=== PATIENT | female | born 1945 | race Caucasian/White ===

== ENCOUNTER → 2020-05-09 14:40 | Outpatient (BNVA) | payer MEDICARE, MEDICAID, SELFPAY | PROVIDERS: PCP Family Medicine; Visit Provider Urology | DX: N39.0 Urinary tract infection, site not specified (principal) | CPT/HCPCS: 99213 ==

== ENCOUNTER 2020-08-07 14:39 | Outpatient (REF) | payer MEDICARE, MEDICAID, SELFPAY ==
[2020-08-07 15:40] LABS: Glucose Urine UA NEG (NEG); Leukocyte Esterase Urine 2+ (NEG); Nitrite Urine POS (NEG); PH 5.5 (5.0-8.0); Specific Gravity - Urine 1.025 (1.005-1.025); Urine Blood 2+ (NEG); Urine Ketones NEG (NEG); Urine Protein 2+ MG/DL (NEG-TRACE)
[2020-08-07 15:46] LABS: Appearance Urine HAZY; Color Urine YELLOW
[2020-08-07 15:55] LABS: Bacteria Urine 3+ /LPF; RBC Urine 30-49 /HPF (0)
== END 2020-08-07 14:40 | disposition home or self-care (01) ==
LOC: HO.LAB 14:39
PROVIDERS: Visit Provider Urology
DX: N39.0 Urinary tract infection, site not specified (principal)
CPT/HCPCS: 81001; 87086

== ENCOUNTER 2020-11-30 08:25 | Outpatient (REF) | payer MEDICARE, MEDICAID, SELFPAY | END 2020-11-30 08:26 | disposition home or self-care (01) | LOC: HO.LAB 08:25 | PROVIDERS: PCP Family Medicine; Referring Provider Family Medicine; Visit Provider Nurse Practitioner | DX: R19.7 Diarrhea, unspecified (principal); K21.9 Gastro-esophageal reflux disease without esophagitis; K59.00 Constipation, unspecified; L85.3 Xerosis cutis | CPT/HCPCS: 36415; 80053; 85025; 99212 ==

== ENCOUNTER → 2021-01-18 08:33 | Outpatient (BNVA) | payer MEDICARE, MEDICAID, SELFPAY | PROVIDERS: PCP Family Medicine; Visit Provider Nurse Practitioner | DX: Z13.89 Encounter for screening for other disorder (principal) | CPT/HCPCS: Q3014 ==

== ENCOUNTER 2021-07-02 11:35 | Outpatient (REF) | payer MEDICARE, MEDICAID, SELFPAY ==
[2021-07-02 12:59] LABS: Appearance Urine HAZY; Color Urine YELLOW; Glucose Urine UA NEG (NEG); Leukocyte Esterase Urine 2+ (NEG); Nitrite Urine POS (NEG); Specific Gravity - Urine <= 1.005 (1.005-1.025); Urine Blood 2+ (NEG); Urine Ketones NEG (NEG); Urine Protein TRACE MG/DL (NEG-TRACE)
[2021-07-02 13:12] LABS: Squamous Epithelial Cell Urine TRACE /LPF
[2021-07-02 13:13] LABS: WBC Urine 50-75 /HPF (0-4)
[2021-07-02 13:14] LABS: Bacteria Urine 2+ /LPF; RBC Urine 0-2 /HPF (0)
== END 2021-07-02 11:36 | disposition home or self-care (01) ==
LOC: HO.LAB 11:35
DX: N39.0 Urinary tract infection, site not specified (principal)
CPT/HCPCS: 81001; 87086; 87088; 87186

== ENCOUNTER 2021-09-27 09:14 | Emergency (ER) | payer MEDICARE, MEDICAID, SELFPAY ==
--- NOTE | ~2021-09-27 | XR_ITS ---
EXAMINATION: XR RIBS, RIGHT CLINICAL INFORMATION: Trauma. COMPARISON: None TECHNIQUE: 3 views of the right ribs were obtained. Chest one view. FINDINGS: Chest: Lungs are clear. No consolidation, pneumothorax, or pleural effusion. The cardiomediastinal silhouette and pulmonary vasculature are normal. Right RIBS: There is right anterior seventh displaced and a nondisplaced right anterior ninth rib fractures. XR/XR ribs RT min 3V w CXR1V IMPRESSION: Unremarkable chest exam. Right anterior seventh and ninth rib fractures
[2021-09-27 09:17] VITALS: BP 195/97; PULSE 100; RESP 18; TEMP 37.1; O2SAT 97; BMI 29.7
--- NOTE | 2021-09-27 09:26 | ED.GENADULT ---
HPI - General Adult General Chief complaint: Fall Stated complaint: abd pain Time Seen by Provider: 09/27/21 09:26 Source: patient Limitations: no limitations History of Present Illness HPI narrative: Patient presents ER complaining of right lateral rib pain. Patient states 2-3 nights ago she fell abdomen slipping on water in her house. Patient states the pain is increasing increases with any twisting motion or palpation on the right side. Patient denies any loss of consciousness no headache. Patient denies nausea vomiting. Patient has a history of colon cancer, constipation, reflux disease and recurrent UTIs. Patient denies any chest pain or shortness of breath at this time patient denies any fever chills. Pain is 7 of 10. No other complaints at this time Related Data Home Medications Medication Instructions Recorded Confirmed alprazolam 0.25 mg tablet 0.25 mg PO DAILY PRN 11/30/20 01/18/21 amlodipine 10 mg tablet 10 mg PO DAILY 11/30/20 01/18/21 cholecalciferol (vitamin D3) 50 50 mcg PO DAILY 11/30/20 01/18/21 mcg (2,000 unit) capsule escitalopram oxalate 5 mg tablet 5 mg PO DAILY 11/30/20 01/18/21 hydrochlorothiazide 25 mg tablet 25 mg PO DAILY 11/30/20 01/18/21 levothyroxine 50 mcg tablet 50 mcg PO QAM 11/30/20 01/18/21 lisinopril 5 mg tablet 5 mg PO DAILY 11/30/20 01/18/21 mometasone 0.1 % topical ointment TOPICAL 11/30/20 01/18/21 potassium chloride 20 mEq 20 meq PO DAILY 11/30/20 01/18/21 tablet,extended release riboflavin (vitamin B2) 100 mg 100 mg PO DAILY 11/30/20 01/18/21 tablet sennosides 15 mg tablet (Ex-Lax 15 mg PO .QOD tab 01/18/21 01/18/21 (sennosides)) Previous Rx's Medication Instructions Recorded nitrofurantoin 100 mg PO DAILY 90 Days #90 cap 07/04/21 monohydrate/macrocrystals 100 mg capsule (Macrobid) levofloxacin 500 mg tablet 500 mg PO DAILY 5 Days #5 tab 07/05/21 ibuprofen 600 mg tablet 600 mg PO TID PRN #20 tab 09/27/21 tramadol 50 mg tablet 50 mg PO BID PRN #14 tab 09/27/21 Allergies Allergy/AdvReac Type Severity Reaction Status Date / Time Sulfa (Sulfonamide Allergy Intermediate RASH Verified 09/27/21 09:17 Antibiotics) [SULFA (SULFONAMIDE ANTIBIOTICS)] lisinopril Allergy Unknown unknown Verified 09/27/21 09:17 nitrofurantoin Allergy Unknown LOT OF Verified 09/27/21 09:17 [From MACRODANTIN] PROBLEMS WITH IT prednisone [PREDNISONE] Allergy Unknown VERY Verified 09/27/21 09:17 ANXIOUS, pt cannot remember ENVIRONMENTAL Allergy Intermediate HAYFEVER Uncoded 04/13/20 18:54 Review of Systems Constitutional: Constitutional: Reports body ache(s), Denies chills, Denies fever(s) and Denies headache(s) ENT: Denies headache(s) Cardiovascular: Cardiovascular: Denies chest pain and Denies dyspnea Comments: Right lateral rib pain Respiratory: Respiratory: Denies dyspnea Gastrointestinal: Gastrointestinal: Denies abdominal pain, Denies diarrhea, Denies nausea and Denies vomiting Musculoskeletal: Comments: Right lateral rib pain Neurologic: Denies Abnormal speech present and Denies headache(s) FORMERLY [facility], 1928–1983 Past Medical History Attestation statement: The following information was validated with the patient. Medical History Hx of cyst of breast Hx of radiation therapy Surgical History History of esophagogastroduodenoscopy (EGD) Hx of cataract surgery Hx of colonoscopy Hx of hysterectomy Hx of tonsillectomy Social History Social History Household Members: Children Alcohol intake: current Alcohol intake frequency: does not drink Patient Tobacco Use Status: Never used Tobacco Use of substances other than those prescribed or required for medical reasons: No Advance Directives: Yes Advance Directives Information Provided: Yes Advance Directives on File: No Current occupational status: retired Physical Exam ED Vital Signs: Vital Signs - 24 hr 09/27/21 09:17 09/27/21 10:33 Temperature 98.7 F 97.6 F Pulse Rate 100 94 Respiratory Rate 18 14 Blood Pressure 195/97 H 173/99 H Pulse Oximetry 97 99 BMI result Body Mass Index 29.7 vital signs have been reviewed as normal and appeared to be correct. Blood pressure normal. Heart rate normal. Respiration rate normal. Temperature normal. Oxygen saturation normal. Const General: cooperative, no acute distress, well developed, alert, awake, Physically active and well groomed; No comfortable HENMT Head: Yes normocephalic and Yes atraumatic General nose exam: Normal external nose present Face and sinus: Yes normal facial exam Mouth: Normal oral and palatal mucosa present Eyes Pupils: Equal, round and reactive pupils present EOM: EOMs intact bilaterally Neck Neck: Yes full ROM, Yes trachea midline and Yes supple Chest Chest palpation & inspection: normal inspection of the chest, no crepitus and other (No ecchymosis noted right lateral ribs no crepitus) Resp Effort & Inspection: no cough, not labored, no retractions and no tracheal deviation Auscultation: clear to auscultation bilaterally Cardio Rate: regular rate Rhythm: regular rhythm GI Inspection: Yes normal to inspection Palpation (GI): Soft to palpation and nontender Back/Spine/Pelvis Other: Back full range of motion Skin Other: Skin is warm and dry no ecchymosis noted no rashes noted Neuro Other: Patient is alert oriented x3 speech is intact no focal deficit bilateral spot man is equal. Ambulatory Cranial nerves: Yes Equal, round and reactive pupils present Speech: No Abnormal speech present Gait exam (Neuro): Normal gait present Extrem General: Yes full ROM Course Course Course Narrative: Right-sided rib fracture Rib contusion Herpes zoster to Chest wall contusion Right-sided rib x-rays was chest x-ray is pending 11:13 X-ray reviewed with patient patient is a 7th and 9th rib fracture incentive spirometry training will be performed by RN Patient states she lives with her son and feel safe going home [employer] reviewed patient's on alprazolam will plan to place patient on NSAIDs and a short course of tramadol for pain. Patient also advised follow-up with PCP within 2 days. Medical Decision Making Imaging Data rib : My impression: [address] [facility] [place] [place] [address] XRay Report Signed Patient: Leonarda Raphael MR#: [id number] : 1945 Acct:[id number] Age/Sex: 75 / F ADM Date: 09/27/21 Loc: HO.ED Attending Dr: Ordering Physician: Man Thompson Date of Service: 09/27/21 Procedure(s): XR ribs RT min 3V w CXR1V Accession Number(s): [id number] cc: Man Thompson ~ EXAMINATION: XR RIBS, RIGHT CLINICAL INFORMATION: Trauma. COMPARISON: None TECHNIQUE: 3 views of the right ribs were obtained. Chest one view. FINDINGS: Chest: Lungs are clear. No consolidation, pneumothorax, or pleural effusion. The cardiomediastinal silhouette and pulmonary vasculature are normal. Right RIBS: There is right anterior seventh displaced and a nondisplaced right anterior ninth rib fractures. XR/XR ribs RT min 3V w CXR1V IMPRESSION: Unremarkable chest exam. ? Right anterior seventh and ninth rib fractures ? Dictated By: Sergey Falcon MD Signed By: <Electronically signed by Sergey Falcon MD in OV> 09/27/21 1050 DD/ 1000 TD/TT:? Welcome Wagon Hostess: [facility] Discharge Plan Discharge Clinical Impression: Fracture of rib Patient Disposition: Home, Self-Care Instructions: Rib Fracture (ED) Additional Instructions: Your x-ray shows the 7th and 9th right rib fracture Breathing exercises as recommended with incentive spirometer to prevent pneumonia Return if symptoms worsen Call PCP for follow-up Prescriptions: New ibuprofen 600 mg tablet 600 mg PO TID PRN (Reason: pain) Qty: 20 0RF tramadol 50 mg tablet 50 mg PO BID PRN (Reason: severe pain (scale score 7-10)) Qty: 14 0RF No Action nitrofurantoin monohyd/m-cryst [Macrobid] 100 mg capsule 100 mg PO DAILY 90 Days Qty: 90 0RF Rx Instructions: must administer with a meal/food levofloxacin 500 mg tablet 500 mg PO DAILY 5 Days Qty: 5 0RF mometasone 0.1 % ointment topical 0RF amlodipine 10 mg tablet 10 mg PO DAILY 0RF escitalopram oxalate 5 mg tablet 5 mg PO DAILY 0RF levothyroxine 50 mcg tablet 50 mcg PO QAM 0RF potassium chloride 20 mEq tablet extended release 20 meq PO DAILY 0RF hydrochlorothiazide 25 mg tablet 25 mg PO DAILY 0RF cholecalciferol (vitamin D3) 50 mcg (2,000 unit) capsule 50 mcg PO DAILY 0RF lisinopril 5 mg tablet 5 mg PO DAILY 0RF alprazolam 0.25 mg tablet 0.25 mg PO DAILY PRN (Reason: anxiety) 0RF riboflavin (vitamin B2) 100 mg tablet 100 mg PO DAILY 0RF Ex-Lax (sennosides) 15 mg tablet 15 mg PO .QOD 0RF Referrals: Lawanda Huynh MD [Primary Care Provider] - 2 days (Right-sided rib fracture)
[2021-09-27 10:33] VITALS: BP 173/99; PULSE 94; RESP 14; TEMP 36.4; O2SAT 99
--- NOTE | 2021-09-27 11:29 | PC.NURSE ---
Education on incentive spirometer. reviewed discharge instructions. Pt verbalized understanding.
== END 2021-09-27 11:34 | disposition home or self-care (01) ==
PROVIDERS: Emergency Provider Emergency Medicine; PCP Family Medicine
DX: S22.41XA Multiple fractures of ribs, right side, initial encounter for closed fracture (principal); W01.10XA Fall on same level from slipping, tripping and stumbling with subsequent striking against unspecified object, initial encounter; Y93.89 Activity, other specified; Y92.010 Kitchen of single-family (private) house as the place of occurrence of the external cause; Y99.9 Unspecified external cause status
CPT/HCPCS: 71101; 99283; 99284

== ENCOUNTER 2022-01-04 14:27 | Emergency (ER) | payer MEDICARE, MEDICAID, SELFPAY ==
[2022-01-04 14:34] VITALS: BP 154/85; PULSE 105; RESP 18; TEMP 36.8; O2SAT 96; BMI 29.5
[2022-01-04 14:49] LABS: Appearance Urine CLOUDY; Color Urine YELLOW; Glucose Urine UA NEG (NEG); Leukocyte Esterase Urine 3+ (NEG); Nitrite Urine NEG (NEG); PH 6.5 (5.0-8.0); UACC Culture Trigger YES; Urine Blood 2+ (NEG); Urine Ketones NEG (NEG); Urine Protein 1+ MG/DL (NEG-TRACE)
[2022-01-04 14:55] LABS: Bacteria Urine 4+ /LPF; WBC Urine TNTC /HPF (0-4)
[2022-01-04 14:56] LABS: RBC Urine 0 /HPF (0)
--- NOTE | 2022-01-04 16:43 | ED.FEMALEGU ---
HPI - Female Genitourinary General Chief complaint: Urogenital-Female Stated complaint: quest uti Time Seen by Provider: 01/04/22 16:38 Source: patient Mode of arrival: ambulatory Limitations: no limitations History of Present Illness HPI Narrative: 76-year-old female presents with urinary symptoms that started about 2 days ago. Has a significant history of recurrent UTIs. Denies fevers, chills, flank pain, and other concerning symptoms. MD elicited complaint: UTI Pertinent past history: recurrent UTIs Onset (ago): day(s) (2) Location of symptoms: urethra Severity: moderate Severity scale (1-10): 3 Quality of pain: burning Consistency: intermittent Vaginal discharge: none Vaginal bleeding: none Urinary symptoms: Dysuria, Urgency and Frequency Exacerbating factors: urination Relieving factors: none Associated symptoms: denies other symptoms Treatment prior to arrival: none Sexual activity: No Patient : No Related Data Home Medications Medication Instructions Recorded Confirmed alprazolam 0.25 mg tablet 0.25 mg PO DAILY PRN anxiety 11/30/20 01/18/21 amlodipine 10 mg tablet 10 mg PO DAILY 11/30/20 01/18/21 cholecalciferol (vitamin D3) 50 50 mcg PO DAILY 11/30/20 01/18/21 mcg (2,000 unit) capsule escitalopram oxalate 5 mg tablet 5 mg PO DAILY 11/30/20 01/18/21 hydrochlorothiazide 25 mg tablet 25 mg PO DAILY 11/30/20 01/18/21 levothyroxine 50 mcg tablet 50 mcg PO QAM 11/30/20 01/18/21 lisinopril 5 mg tablet 5 mg PO DAILY 11/30/20 01/18/21 mometasone 0.1 % topical ointment topical 11/30/20 01/18/21 potassium chloride 20 mEq 20 meq PO DAILY 11/30/20 01/18/21 tablet,extended release riboflavin (vitamin B2) 100 mg 100 mg PO DAILY 11/30/20 01/18/21 tablet sennosides 15 mg tablet (Ex-Lax 15 mg PO .QOD 01/18/21 01/18/21 (sennosides)) Previous Rx's Medication Instructions Recorded nitrofurantoin 100 mg PO DAILY UTI 90 days #90 07/04/21 monohydrate/macrocrystals 100 mg caps capsule (Macrobid) levofloxacin 500 mg tablet 500 mg PO DAILY 5 days #5 tabs 07/05/21 ibuprofen 600 mg tablet 600 mg PO TID PRN pain #20 tabs 09/27/21 tramadol 50 mg tablet 50 mg PO BID PRN severe pain 09/27/21 (scale score 7-10) #14 tabs cephalexin 500 mg capsule 500 mg PO Q12H 7 days #14 caps 01/04/22 Allergies Allergy/AdvReac Type Severity Reaction Status Date / Time Sulfa (Sulfonamide Allergy Intermediate RASH Verified 01/04/22 14:33 Antibiotics) [SULFA (SULFONAMIDE ANTIBIOTICS)] lisinopril Allergy Unknown unknown Verified 01/04/22 14:33 nitrofurantoin Allergy Unknown LOT OF Verified 01/04/22 14:33 [From MACRODANTIN] PROBLEMS WITH IT prednisone [PREDNISONE] Allergy Unknown VERY Verified 01/04/22 14:33 ANXIOUS, pt cannot remember ENVIRONMENTAL Allergy Intermediate HAYFEVER Uncoded 01/04/22 14:33 Review of Systems Review of Systems: Constitutional: No Fever, No Chills ENT/Mouth: No Ear Pain, No Hoarseness, No sore throat Eyes: No Eye Pain, No Swelling, No Redness, No Foreign Body Cardiovascular: No Chest Pain, No SOB Respiratory: No Cough, No Dyspnea Gastrointestinal: No Nausea, No Vomiting, No Diarrhea, No abdominal Pain Genitourinary: Positive Dysuria, No Hematuria Musculoskeletal: No joint pain, No Myalgias, No Joint Swelling Skin: No Skin lacerations, No rash Neuro: No Weakness, No Numbness, No Paresthesias, No Loss of Consciousness, No Dizziness, No Headache Psych: No Anxiety/Panic, No Depression Heme/Lymph: no easy bruising, no Lymphadenopathy Endocrine: No Polyuria, No Polydipsia Yes all other systems are reviewed and are negative PMFSH Past Medical History Attestation statement: The following information was validated with the patient. Source: old records reviewed Medical History Hx of cyst of breast Hx of radiation therapy Surgical History History of esophagogastroduodenoscopy (EGD) Hx of cataract surgery Hx of colonoscopy Hx of hysterectomy Hx of tonsillectomy Social History Social History Household Members: Children Alcohol intake: current Alcohol intake frequency: does not drink Patient Tobacco Use Status: Never used Tobacco Advance Directives: No Advance Directives Information Provided: No Patient : No Current occupational status: retired Physical Exam Vital Signs: Vital Signs: Last Vital Signs Temp 98.3 F 01/04/22 14:34 Pulse 105 H 01/04/22 14:34 Resp 18 01/04/22 14:34 BP 154/85 H 01/04/22 14:34 Pulse Ox 96 01/04/22 14:34 O2 Del Method 01/04/22 14:34 BMI result Body Mass Index 29.5 Appearance: Alert. Oriented X3. No acute distress. Eyes: Pupils equal, round and reactive to light. ENT: Pharynx normal. Neck: Normal inspection. Neck supple. CVS: Normal heart rate and rhythm. Pulses normal. Respiratory: No respiratory distress. Breath sounds normal. Abdomen: Soft and nontender. Skin: Skin warm and dry. Normal skin color. Normal skin turgor. Extremities: No lower extremity edema. Gait well-balanced well coordinated. Neuro: No motor deficit. No sensory deficit. Cranial nerves 2-12 intact. Course Course Course Narrative: 76-year-old female presents with urinary symptoms that started approximately 2 days ago. Reports recurrent UTI. Is allergic to sulfa and nitrofurantoin. Patient states to be nervous because she is visiting her son who is patient in this hospital. Will treat with Keflex. 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 Has not been on antibiotics in several months. Patient is afebrile, appears nontoxic. Patient verbalized understanding of and agrees to plan of care to discharge home. Verbalized understanding of signs and symptoms indicating need for emergent intervention MDM - Female Genitourinary Differential Diagnosis Differential diagnosis: Likely urinary tract infection Medical Records Attestation: I reviewed the patient's medical records. Lab Data Attestation: I reviewed the patient's lab results. Labs: Lab Results 01/04/22 Range/Units 14:43 Urine Color YELLOW Urine Appearance CLOUDY Urine pH 6.5 (5.0-8.0) Ur Specific [employer] [place] 1.020 (1.005-1.025) Urine Protein 1+ H (NEG-TRACE) MG/DL Urine Glucose (UA) NEG (NEG) MG/DL Urine Ketones NEG (NEG) MG/DL Urine Blood 2+ H (NEG) Urine Nitrite NEG (NEG) Ur Leukocyte Esterase 3+ H (NEG) Urine RBC 0 (0) /HPF Urine WBC TNTC H (0-4) /HPF Ur Squamous Epith Cells NONE /LPF Urine Bacteria 4+ /LPF Discharge Plan Discharge Clinical Impression: Urinary tract infection Patient Disposition: Home, Self-Care Instructions: Urinary Tract Infection in Older Adults (ED) Additional Instructions: You were evaluated for urinary symptoms. Urinalysis is positive for UTI. Please take Keflex 500 mg twice a day for the next 7 days. Drink plenty of fluids. Follow-up with primary care physician. Thank you for choosing this emergency department for evaluation. Please follow-up with primary care physician as needed. Return to the emergency department for any new, concerning, or worsening symptoms. Prescriptions: New cephalexin 500 mg capsule 500 mg PO Q12H 7 Days Qty: 14 0RF No Action nitrofurantoin monohyd/m-cryst [Macrobid] 100 mg capsule 100 mg PO DAILY 90 Days Qty: 90 0RF Rx Instructions: must administer with a meal/food levofloxacin 500 mg tablet 500 mg PO DAILY 5 Days Qty: 5 0RF ibuprofen 600 mg tablet 600 mg PO TID PRN (Reason: pain) Qty: 20 0RF tramadol 50 mg tablet 50 mg PO BID PRN (Reason: severe pain (scale score 7-10)) Qty: 14 0RF mometasone 0.1 % ointment topical amlodipine 10 mg tablet 10 mg PO DAILY escitalopram oxalate 5 mg tablet 5 mg PO DAILY levothyroxine 50 mcg tablet 50 mcg PO QAM potassium chloride 20 mEq tablet extended release 20 meq PO DAILY hydrochlorothiazide 25 mg tablet 25 mg PO DAILY cholecalciferol (vitamin D3) 50 mcg (2,000 unit) capsule 50 mcg PO DAILY lisinopril 5 mg tablet 5 mg PO DAILY alprazolam 0.25 mg tablet 0.25 mg PO DAILY PRN (Reason: anxiety) riboflavin (vitamin B2) 100 mg tablet 100 mg PO DAILY Ex-Lax (sennosides) 15 mg tablet 15 mg PO .QOD Referrals: Lawanda Huynh MD [Primary Care Provider] - Interventions: ED Discharge Assessment Last Done: 01/04/22 17:35 Discharge Date/Time: 01/04/22 17:36
[2022-01-04] MEDS: cephALEXin 500 MG CAPSULE PO (17:08)
== END 2022-01-04 17:36 | disposition home or self-care (01) ==
PROVIDERS: Emergency Provider Emergency Medicine; PCP Family Medicine
DX: N39.0 Urinary tract infection, site not specified (principal); Z88.2 Allergy status to sulfonamides
CPT/HCPCS: 81001; 87086; 87088; 87186; 99282; 99283

== ENCOUNTER 2022-01-15 17:58 | Emergency (ER) | payer MEDICARE, MEDICAID, SELFPAY | END 2022-01-15 18:49 | disposition left against medical advice (07) | PROVIDERS: Emergency Provider Emergency Medicine | DX: J02.9 Acute pharyngitis, unspecified (principal); R51.9 Headache, unspecified ==

== ENCOUNTER 2022-02-11 09:35 | Outpatient (REF) | payer MEDICARE, MEDICAID, SELFPAY | END 2022-02-11 09:36 | disposition home or self-care (01) | LOC: HO.LAB 09:35 | DX: N39.0 Urinary tract infection, site not specified (principal) | CPT/HCPCS: 87086; 87088; 87186; 99202 ==

== ENCOUNTER 2022-03-04 08:21 | Outpatient (REF) | payer MEDICARE, MEDICAID, SELFPAY ==
[2022-03-04 17:16] LABS: Appearance Urine CLEAR; Color Urine STRAW; Glucose Urine UA NEG (NEG); Leukocyte Esterase Urine 2+ (NEG); Nitrite Urine NEG (NEG); Urine Blood TRACE (NEG); Urine Ketones NEG (NEG); Urine Protein TRACE MG/DL (NEG-TRACE)
[2022-03-04 17:34] LABS: Squamous Epithelial Cell Urine 1+ /LPF
[2022-03-04 17:35] LABS: Bacteria Urine 1+ /LPF; RBC Urine 0-2 /HPF (0)
== END 2022-03-04 08:22 | disposition home or self-care (01) ==
LOC: HO.LAB 08:21
DX: N39.0 Urinary tract infection, site not specified (principal)
CPT/HCPCS: 81001; 87086; Q3014

== ENCOUNTER 2022-10-04 07:48 | Outpatient (REF) | payer MEDICARE, MEDICAID, SELFPAY | END 2022-10-04 07:49 | disposition home or self-care (01) | LOC: HO.HOSX 07:48 | PROVIDERS: Visit Provider Physician Assistant | DX: Z13.89 Encounter for screening for other disorder (principal) ==

== ENCOUNTER 2022-10-23 15:00 | Emergency (ER) | payer MEDICARE, MEDICAID, SELFPAY ==
[2022-10-23 15:14] VITALS: BP 114/90; PULSE 96; RESP 17; TEMP 36.6; O2SAT 97; BMI 33.0
--- NOTE | 2022-10-23 15:18 | ED_ITS ---
HPI - General Adult General Chief complaint: General Medical Stated complaint: rash Time Seen by Provider: 10/23/22 15:17 Source: patient Mode of arrival: ambulatory Limitations: no limitations History of Present Illness HPI narrative: 77 yo female with history of GERD, recurrent UTI, constipation who presents to the ER for evaluation of a spreading rash on her body. She 1st noticed a slightly itchy area on her upper back about 1 week ago. She tried changing her soaps thinking it might be an allergic reaction. She states the rash started to spread to her left arm and trunk. She denies any new medications. She lives at home with her cat who is indoor. MD complaint: rash Onset (ago): week(s) (1) Location: back, left and upper extremity Severity: moderate Pain Consistency: intermittent Relieving factors: none Exacerbating factors: none Associated symptoms: denies other symptoms Treatments prior to arrival: none Related Data Home Medications Medication Instructions Recorded Confirmed alprazolam 0.25 mg tablet 0.25 mg PO DAILY PRN anxiety 11/30/20 01/18/21 amlodipine 10 mg tablet 10 mg PO DAILY 11/30/20 01/18/21 cholecalciferol (vitamin D3) 50 50 mcg PO DAILY 11/30/20 01/18/21 mcg (2,000 unit) capsule escitalopram oxalate 5 mg tablet 5 mg PO DAILY 11/30/20 01/18/21 hydrochlorothiazide 25 mg tablet 25 mg PO DAILY 11/30/20 01/18/21 levothyroxine 50 mcg tablet 50 mcg PO QAM 11/30/20 01/18/21 lisinopril 5 mg tablet 5 mg PO DAILY 11/30/20 01/18/21 mometasone 0.1 % topical ointment topical 11/30/20 01/18/21 potassium chloride 20 mEq 20 meq PO DAILY 11/30/20 01/18/21 tablet,extended release riboflavin (vitamin B2) 100 mg 100 mg PO DAILY 11/30/20 01/18/21 tablet sennosides 15 mg tablet (Ex-Lax 15 mg PO .QOD 01/18/21 01/18/21 (sennosides)) cephalexin 250 mg capsule 250 mg PO QID 02/11/22 cetirizine 10 mg tablet 10 mg PO DAILY 02/11/22 mirtazapine 15 mg tablet 15 mg PO BEDTIME 02/11/22 Previous Rx's Medication Instructions Recorded ibuprofen 600 mg tablet 600 mg PO TID PRN pain #20 tabs 09/27/21 tramadol 50 mg tablet 50 mg PO BID PRN severe pain 09/27/21 (scale score 7-10) #14 tabs cephalexin 500 mg capsule 500 mg PO Q12H 7 days #14 caps 01/04/22 nitrofurantoin macrocrystal 100 mg 100 mg PO BEDTIME #30 caps 02/11/22 capsule (Macrodantin) amoxicillin 875 mg-potassium 1 tab PO BID UTI 5 days #10 tabs 03/07/22 clavulanate 125 mg tablet hydrocortisone 2.5 % topical cream 1 appl topical BID #30 grams 10/23/22 Allergies Allergy/AdvReac Type Severity Reaction Status Date / Time Sulfa (Sulfonamide Allergy Intermediate RASH Verified 10/23/22 15:13 Antibiotics) [SULFA (SULFONAMIDE ANTIBIOTICS)] lisinopril Allergy Unknown unknown Verified 10/23/22 15:13 prednisone [PREDNISONE] Allergy Unknown VERY Verified 10/23/22 15:13 ANXIOUS, pt cannot remember ENVIRONMENTAL Allergy Intermediate HAYFEVER Uncoded 10/23/22 15:13 [facility] Past Medical History Medical History Acute gastroenteritis Constipation GERD (gastroesophageal reflux disease) Hx of cyst of breast Hx of radiation therapy IBS (irritable bowel syndrome) Malignant neoplasm of rectum Radiation proctitis Surgical History History of esophagogastroduodenoscopy (EGD) Hx of cataract surgery Hx of colonoscopy Hx of hysterectomy Hx of tonsillectomy Social History Social History Household Members: Children Alcohol intake: current Alcohol intake frequency: does not drink Patient Tobacco Use Status: Never used Tobacco Advance Directives: Yes Advance Directives Information Provided: No Advance Directives on File: No Current occupational status: retired Physical Exam ED Vital Signs: Vital Signs - 24 hr 10/23/22 15:14 Temperature 98 F Pulse Rate 96 Respiratory Rate 17 Blood Pressure 114/90 H Pulse Oximetry 97 Oxygen Delivery Method Room Air BMI result Body Mass Index 33.0 Appearance: Alert. Oriented X3. No acute distress. HEENT: normal inspection CVS: Normal heart rate and rhythm. Pulses normal. Respiratory: No respiratory distress. Skin: Skin warm and dry. Normal skin color. Skin is dry. Scattered area of scabbing and erythema on the upper back, 2 on the chest wall and 2 on the left upper extremity. no oozing, drainage, no crusting. Extremities: normal inspection, no joint swelling. Neuro: Oriented X 3. No motor deficit. No sensory deficit. Medical Decision Making Differential Diagnosis Differential Diagnoses: The differential diagnosis associated with the presentation includes dermatitis, eczema, atopic dermatitis, allergic reaction, scabies, bug bites External Record Review External record reviewed: Prior outpatient labs Prescription Management I considered prescription management with: Other (steroid cream) Critical Care Time Critical Care Time Critical Care Time: No Discharge Plan Discharge Clinical Impression: Dermatitis Patient Disposition: Home, Self-Care Instructions: Dermatitis (ED) Additional Instructions: recommend using Aquaphor to your skin, this can be found in any pharmacy use the prescribed hydrocortisone ointment two times per day for at least 1 week follow up with your dematologist If you develop new or worsening symptoms call 911 or come back to the ER for further evaluation. Prescriptions: New hydrocortisone 2.5 % cream 1 appl topical BID Qty: 30 0RF No Action amoxicillin-pot clavulanate 875-125 mg tablet 1 tab PO BID 5 Days Qty: 10 0RF ibuprofen 600 mg tablet 600 mg PO TID PRN (Reason: pain) Qty: 20 0RF tramadol 50 mg tablet 50 mg PO BID PRN (Reason: severe pain (scale score 7-10)) Qty: 14 0RF cephalexin 500 mg capsule 500 mg PO Q12H 7 Days Qty: 14 0RF mometasone 0.1 % ointment topical amlodipine 10 mg tablet 10 mg PO DAILY escitalopram oxalate 5 mg tablet 5 mg PO DAILY levothyroxine 50 mcg tablet 50 mcg PO QAM potassium chloride 20 mEq tablet extended release 20 meq PO DAILY hydrochlorothiazide 25 mg tablet 25 mg PO DAILY cholecalciferol (vitamin D3) 50 mcg (2,000 unit) capsule 50 mcg PO DAILY lisinopril 5 mg tablet 5 mg PO DAILY alprazolam 0.25 mg tablet 0.25 mg PO DAILY PRN (Reason: anxiety) riboflavin (vitamin B2) 100 mg tablet 100 mg PO DAILY Ex-Lax (sennosides) 15 mg tablet 15 mg PO .QOD mirtazapine 15 mg tablet 15 mg PO BEDTIME cephalexin 250 mg capsule 250 mg PO QID cetirizine 10 mg tablet 10 mg PO DAILY nitrofurantoin macrocrystal [Macrodantin] 100 mg capsule 100 mg PO BEDTIME Qty: 30 3RF Rx Instructions: must administer with a meal/food Interventions: ED Discharge Assessment Last Done: 10/23/22 16:03 Discharge Date/Time: 10/23/22 16:04
== END 2022-10-23 16:04 | disposition home or self-care (01) ==
PROVIDERS: Emergency Provider Emergency Medicine
DX: L30.9 Dermatitis, unspecified (principal); R21 Rash and other nonspecific skin eruption; Z79.899 Other long term (current) drug therapy
CPT/HCPCS: 99282; 99283

== ENCOUNTER 2023-02-07 14:33 | Outpatient (REF) | payer MEDICARE, MEDICAID, SELFPAY ==
--- NOTE | ~2023-02-07 | XR_ITS ---
EXAMINATION: XR HIP, RIGHT CLINICAL INFORMATION: Pain. COMPARISON: None available. TECHNIQUE: Three views of the right hip. XR/XR hip RT w PEL1V FINDINGS / IMPRESSION: No fracture. Alignment is anatomic. Right hip joint space is maintained. The sacroiliac joints and symphysis pubis are maintained. 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 Soft tissues are unremarkable.
== END 2023-02-07 14:34 | disposition home or self-care (01) ==
LOC: HO.XRAY 14:33
PROVIDERS: Visit Provider Physician Assistant
DX: M25.551 Pain in right hip (principal)
CPT/HCPCS: 73502

== ENCOUNTER 2023-04-21 11:42 | Emergency (ER) | payer MEDICARE, MEDICAID, SELFPAY ==
[2023-04-21 12:32] VITALS: BP 141/71; PULSE 70; RESP 17; TEMP 35.9; O2SAT 99; BMI 21.1
--- NOTE | 2023-04-21 12:32 | ED_ITS ---
HPI - General Adult General Chief complaint: General Medical Stated complaint: L hand pain Time Seen by Provider: 04/21/23 16:49 Source: patient Mode of arrival: ambulatory Limitations: no limitations History of Present Illness HPI narrative: Patient is a 77 year old assigned female at with a history of IBS and GERD presenting to the emergency department today with left arm pain. Patient states that over the last couple of days she has been doing much more house and yard work and now she is having left sided arm pain. Patient denies any dizziness, lightheadedness, abdominal pain, nausea, vomiting, fever, chills, blurry vision, double vision, loss of vision, chest pain, difficulty breathing, shortness of breath, back pain, night sweats, pain with urination, increased urinary frequency, increased urinary urgency, blood in her urine or stool, syncope or a near syncopal episode, recent trauma or falls, bowel incontinence, bladder incontinence, bowel retention, bladder retention, or any other complaints at this time. Onset (ago): day(s) Location: left and upper extremity Radiation: non-radiation Severity: mild Severity scale (1-10): 3 Quality: aching and dull Pain Consistency: constant Relieving factors: none Exacerbating factors: none Associated symptoms: denies other symptoms Treatments prior to arrival: none Related Data Home Medications Medication Instructions Recorded Confirmed alprazolam 0.25 mg tablet 0.25 mg PO DAILY PRN anxiety 11/30/20 01/18/21 amlodipine 10 mg tablet 10 mg PO DAILY 11/30/20 01/18/21 cholecalciferol (vitamin D3) 50 50 mcg PO DAILY 11/30/20 01/18/21 mcg (2,000 unit) capsule escitalopram oxalate 5 mg tablet 5 mg PO DAILY 11/30/20 01/18/21 hydrochlorothiazide 25 mg tablet 25 mg PO DAILY 11/30/20 01/18/21 levothyroxine 50 mcg tablet 50 mcg PO QAM 11/30/20 01/18/21 lisinopril 5 mg tablet 5 mg PO DAILY 11/30/20 01/18/21 mometasone 0.1 % topical ointment topical 11/30/20 01/18/21 potassium chloride 20 mEq 20 meq PO DAILY 11/30/20 01/18/21 tablet,extended release riboflavin (vitamin B2) 100 mg 100 mg PO DAILY 11/30/20 01/18/21 tablet sennosides 15 mg tablet (Ex-Lax 15 mg PO .QOD 01/18/21 01/18/21 (sennosides)) cephalexin 250 mg capsule 250 mg PO QID 02/11/22 cetirizine 10 mg tablet 10 mg PO DAILY 02/11/22 mirtazapine 15 mg tablet 15 mg PO BEDTIME 02/11/22 Previous Rx's Medication Instructions Recorded ibuprofen 600 mg tablet 600 mg PO TID PRN pain #20 tabs 09/27/21 tramadol 50 mg tablet 50 mg PO BID PRN severe pain 09/27/21 (scale score 7-10) #14 tabs cephalexin 500 mg capsule 500 mg PO Q12H 7 days #14 caps 01/04/22 nitrofurantoin macrocrystal 100 mg 100 mg PO BEDTIME #30 caps 02/11/22 capsule (Macrodantin) amoxicillin 875 mg-potassium 1 tab PO BID UTI 5 days #10 tabs 03/07/22 clavulanate 125 mg tablet hydrocortisone 2.5 % topical cream 1 appl topical BID #30 grams 10/23/22 Allergies Allergy/AdvReac Type Severity Reaction Status Date / Time Sulfa (Sulfonamide Allergy Intermediate RASH Verified 10/23/22 15:13 Antibiotics) [SULFA (SULFONAMIDE ANTIBIOTICS)] lisinopril Allergy Unknown unknown Verified 10/23/22 15:13 prednisone [PREDNISONE] Allergy Unknown VERY Verified 10/23/22 15:13 ANXIOUS, pt cannot remember ENVIRONMENTAL Allergy Intermediate HAYFEVER Uncoded 10/23/22 15:13 Review of Systems 2 Constitutional: Constitutional: Reports no additional constitutional complaints, Denies chills, Denies fever(s) and Denies night sweats Eyes: Eyes: Reports no additional eye complaints, Denies blurry vision, Denies change in vision, Denies diplopia, Denies eye discharge, Denies loss of vision and Denies eye pain ENT: Denies dizziness Cardiovascular: Cardiovascular: Reports no additional cardiovascular complaints, Denies chest pain, Denies lightheadedness, Denies Loss of Consciousness and Denies dyspnea Respiratory: Respiratory: Reports no additional respiratory complaints and Denies dyspnea Gastrointestinal: Gastrointestinal: Reports no additional gastrointestinal complaints, Denies abdominal pain, Denies melena, Denies hematochezia, Denies change in bowel habits and Denies change in stool character Genitourinary: Genitourinary: Denies hematuria, Denies urinary frequency, Denies dysuria, Denies urinary incontinence, Denies urinary hesitancy and Denies urinary urgency Musculoskeletal: Musculoskeletal: Reports no additional musculoskeletal complaints, Denies numbness and Denies tingling Comments: left arm pain Neurologic: Denies dizziness, Denies loss of vision, Denies numbness and Denies tingling Psychiatric: Psychiatric: Reports no additional psychiatric complaints Endocrine: Endocrine: Reports no additional endocrine complaints Hematologic/Lymphatic: Hematologic/Lymphatic: Reports no additional hematologic/lymphatic complaints Allergic/Immunologic: Allergic/Immunologic: Reports no additional allergic/immunologic complaints PMFSH Past Medical History Attestation statement: The following information was validated with the patient. Source: old records reviewed and nursing notes reviewed Medical History Diarrhea Acute gastroenteritis Constipation Radiation proctitis IBS (irritable bowel syndrome) Malignant neoplasm of rectum GERD (gastroesophageal reflux disease) Hx of radiation therapy Hx of cyst of breast Surgical History Hx of tonsillectomy History of esophagogastroduodenoscopy (EGD) Hx of cataract surgery Hx of colonoscopy Hx of hysterectomy Social History Social History Household Members: Children Alcohol intake: current Alcohol intake frequency: does not drink Patient Tobacco Use Status: Never used Tobacco Advance Directives: No Advance Directives Information Provided: Yes Current occupational status: retired Physical Exam ED Vital Signs: Vital Signs - 24 hr 04/21/23 12:32 Temperature 96.6 F L Pulse Rate 70 Respiratory Rate 17 Blood Pressure 141/71 H Pulse Oximetry 99 Oxygen Delivery Method Room Air BMI result Body Mass Index 21.1 Const General: cooperative, no acute distress, alert and awake Nutritional Appearance: well nourished Orientation/consciousness: patient oriented x3 Limitations: no limitations HENMT Head: Yes normal to inspection and Yes atraumatic Ears: hearing grossly normal bilaterally and external ears normal General nose exam: Normal external nose present, no nasal discharge noted and no epistaxis Face and sinus: Yes normal facial exam, No abrasion and No laceration Mouth: Normal oral and palatal mucosa present, no drooling and no muffled voice Eyes General: appearance normal, both eyes and all related structures Periorbital: periorbital findings normal Eyelids: Yes eyelids normal Conjunctivae: conjunctivae normal Pupils: Equal, round and reactive pupils present EOM: EOMs intact bilaterally Neck Neck: Yes normal visual inspection, Yes full ROM and Yes no lymphadenopathy Chest Chest palpation & inspection: normal inspection of the chest Resp Effort & Inspection: normal respiratory effort and able to speak in complete sentences GI Inspection: Yes normal to inspection Neuro General: patient oriented x3 and moves all extremities Cranial nerves: Yes Equal, round and reactive pupils present Cognition (Neuro): normal cognition Motor exam (neuro): 5/5 motor strength present throughout Sensory Exam: Normal double simultaneous stimulation for sensation Coordination: [id number] test normal Extrem General: Yes normal to inspection, Yes full ROM and Yes capillary refill normal Psych Appearance: grossly normal Mental Status: mental status grossly normal Affect: normal affect Attitude: cooperative Thought process: Normal thought process present Thought content: Normal thought content present Insight: Good insight present (Psych) Course Course Course Narrative: RME performed by Mone Joe PA-C. Patient is a 77 year old assigned female at presenting to the emergency department with left arm pain. Patient states that she did some yard work and fall cleaning and is now having left arm pain. Labs ordered. Patient placed back in the waiting room pending room availability and results. Medical Decision Making Medical Decision Making [facility] Narrative: Patient is a 77 year old assigned female at with a history of IBS and GERD presenting to the emergency department today with left arm pain. Patient's limited physical exam performed in triage was unremarkable. Patient's blood work was unremarkable. Patient's EKG was unremarkable. Patient left the department before treatment was completed. Patient left the department before myself or any of the other emergency department clinicians could explain and review her physical exam findings or her test results. Patient left the department before myself or any of the other emergency department clinicians could discuss the need or lack there of for additional testing and treatment / treatment options. Differential Diagnosis Differential Diagnoses: The differential diagnosis associated with the presentation includes [place] NSTEMI Left arm pain Mechnical arm pain Admission/Observation Consideration of admission/observation: Escalation of care including admission/observation considered Patient would have been admitted to the hospital had her work up had any findings where hospital admission was appropriate, her clinical presentation warranted hospital admission, and had she not left the emergency department before myself or any of the other emergency department clinicians could review with her. Lab Data MDM Lab Attestation statement: I reviewed the patient's lab results. My interpretation of these studies and their corresponding values is that they are grossly normal. 04/21/23 12:57 04/21/23 12:57 Labs: Lab Results 04/21/23 Range/Units 12:57 WBC 4.4 L (4.8-10.8) X10*3/uL RBC 4.32 (4.20-5.50) X10*6/uL Hgb 13.7 (12.0-16.0) g/dl Hct 38.9 (37.0-47.0) % MCV 90.0 (80.0-98.0) fL MCH 31.7 (27.0-33.0) pg MCHC 35.2 H (31.0-35.0) g/dl RDW 12.7 (11.0-16.0) % Plt Count 130 L (160-400) X10*3/uL MPV 9.5 (9.4-12.3) fL Immature Gran % (Auto) 0.2 (0.0-0.4) % Neut % (Auto) 53.4 (45-73) % Lymph % (Auto) 32.8 (20-40) % Roosevelt % (Auto) 9.2 (2-11) % Eos % (Auto) 3.9 (0-4) % Baso % (Auto) 0.5 (0-2) % Lymph # (Auto) 1.4 (1.2-4.9) X10*3/uL Roosevelt # (Auto) 0.4 (0.1-1.2) X10*3/uL Eos # (Auto) 0.2 (0.0-0.4) X10*3/uL Baso # (Auto) 0.0 (0.0-0.2) X10*3/uL Abs Immat Gran (auto) 0.01 (0.00-0.03) X10*3/uL Absolute Neuts (auto) 2.3 (2.0-8.3) x10*3/uL Absolute Nucleated RBC 0.000 (0.0-0.012) X10*3/uL Nucleated RBC % (auto) 0.0 (0.0-0.2) /100WBC PT 11.5 (11.1-13.3) SEC INR 0.9 (0.9-1.1) APTT 32.9 (26.0-36.4) SEC Sodium 143 (135-145) mmol/L Potassium 3.7 (3.3-5.1) mmol/L Chloride 108 (96-108) mmol/L Carbon Dioxide 24 (22-29) mmol/L Anion Gap 15 (12-20) BUN 9 (9-16) mg/dL Creatinine 0.71 (0.5-1.4) mg/dL Estim Creat Clear Calc 49.1 Estimated GFR > 60 Random Glucose 92 (60-115) mg/dL Calcium 9.8 (8.4-10.2) mg/dL Magnesium 1.9 (1.6-2.6) mg/dL Total Bilirubin 0.5 (0.0-1.0) mg/dL AST 36 H (5-31) U/L ALT 39 H (0-31) U/L Alkaline Phosphatase 65 (39-117) U/L Troponin I High Sens < 2.7 (<3.5-17.0) ng/L Total Protein 7.1 (6.5-8.0) g/dL Albumin 4.5 (3.5-5.0) g/dL Independent Interpretation I performed an independent interpretation of an: EKG Interpretation: Vent. Rate: 068 BPM Atrial Rate: 068 BPM P-R Int: 158 ms QRS Dur: 074 ms QT Int: 410 ms P-R-T Axes: 034 019 021 degrees QTc Int: 435 ms Normal sinus rhythm Low voltage QRS Borderline ECG No previous ECGs available Electronically Signed By:WILFRED TITUS DOCP Dictated By: Wilfred Titus DO Signed By: Electronically signed by Wilfred Titus DO 04/21/23 1404 Discharge Plan Discharge Clinical Impression: Arm pain Patient Disposition: Left W/O Completing Treatment Prescriptions: No Action amoxicillin-pot clavulanate 875-125 mg tablet 1 tab PO BID 5 Days Qty: 10 0RF ibuprofen 600 mg tablet 600 mg PO TID PRN (Reason: pain) Qty: 20 0RF tramadol 50 mg tablet 50 mg PO BID PRN (Reason: severe pain (scale score 7-10)) Qty: 14 0RF cephalexin 500 mg capsule 500 mg PO Q12H 7 Days Qty: 14 0RF hydrocortisone 2.5 % cream 1 appl topical BID Qty: 30 0RF mometasone 0.1 % ointment topical amlodipine 10 mg tablet 10 mg PO DAILY escitalopram oxalate 5 mg tablet 5 mg PO DAILY levothyroxine 50 mcg tablet 50 mcg PO QAM potassium chloride 20 mEq tablet extended release 20 meq PO DAILY hydrochlorothiazide 25 mg tablet 25 mg PO DAILY cholecalciferol (vitamin D3) 50 mcg (2,000 unit) capsule 50 mcg PO DAILY lisinopril 5 mg tablet 5 mg PO DAILY alprazolam 0.25 mg tablet 0.25 mg PO DAILY PRN (Reason: anxiety) riboflavin (vitamin B2) 100 mg tablet 100 mg PO DAILY Ex-Lax (sennosides) 15 mg tablet 15 mg PO .QOD mirtazapine 15 mg tablet 15 mg PO BEDTIME cephalexin 250 mg capsule 250 mg PO QID cetirizine 10 mg tablet 10 mg PO DAILY nitrofurantoin macrocrystal [Macrodantin] 100 mg capsule 100 mg PO BEDTIME Qty: 30 3RF Rx Instructions: must administer with a meal/food Interventions: ED Discharge Assessment Last Done: 04/21/23 17:19 Discharge Date/Time: 04/21/23 17:19
--- NOTE | 2023-04-21 12:34 | ECG_ITS ---
Test Reason : arm pain Blood Pressure : / mmHG Vent. Rate : 068 BPM Atrial Rate : 068 BPM P-R Int : 158 ms QRS Dur : 074 ms QT Int : 410 ms P-R-T Axes : 034 019 021 degrees QTc Int : 435 ms Normal sinus rhythm Low voltage QRS Borderline ECG No previous ECGs available Referred By: Mone Joe Electronically Signed By:MARELY RICH
[2023-04-21 13:06] LABS: MANUAL DIFF FLAG NO
[2023-04-21 13:09] LABS: Basophils Percent Auto 0.5 % (0-2); Eosinophils Absolute Auto 0.2 X10*3/uL (0.0-0.4); Eosinophils Percent Auto 3.9 % (0-4); Hematocrit 38.9 % (37.0-47.0); Hemoglobin 13.7 g/dl (12.0-16.0); Imm Gran Abs Auto 0.01 X10*3/uL (0.00-0.03); Imm Gran Pct Auto 0.2 % (0.0-0.4); Lymphocytes Absolute Auto 1.4 X10*3/uL (1.2-4.9); Lymphocytes Percent Auto 32.8 % (20-40); Mean Corpuscular HGB Conc 35.2 g/dl (31.0-35.0); Mean Corpuscular Hemoglobin 31.7 pg (27.0-33.0); Mean Platelet Volume 9.5 fL (9.4-12.3); Monocytes Absolute Auto 0.4 X10*3/uL (0.1-1.2); Monocytes Percent Auto 9.2 % (2-11); Neutrophils Absolute Auto 2.3 x10*3/uL (2.0-8.3); Neutrophils Percent Auto 53.4 % (45-73); Platelet Count 130 X10*3/uL (160-400); Red Blood Count 4.32 X10*6/uL (4.20-5.50); Red Cell Distribution Width 12.7 % (11.0-16.0); White Blood Count 4.4 X10*3/uL (4.8-10.8)
[2023-04-21 13:13] LABS: INTERNATIONAL NORM RATIO 0.9 (0.9-1.1); Prothrombin Time 11.5 SEC (11.1-13.3)
[2023-04-21 13:16] LABS: Partial Thromboplastin Time 32.9 SEC (26.0-36.4)
[2023-04-21 13:24] LABS: Alanine Aminotransferase 39 U/L (0-31); Albumin Level 4.5 g/dL (3.5-5.0); Alkaline Phosphatase 65 U/L (39-117); Anion Gap 15 (12-20); Aspartate Amino Transferase 36 U/L (5-31); Bilirubin Total 0.5 mg/dL (0.0-1.0); Blood Urea Nitrogen 9 mg/dL (9-16); Calcium 9.8 mg/dL (8.4-10.2); Carbon Dioxide 24 mmol/L (22-29); Chloride 108 mmol/L (96-108); Creatinine Clr Calc Pharmacy 49.1; Estimated Glomerular Filt Rate > 60; Glucose Random 92 mg/dL (60-115); Magnesium 1.9 mg/dL (1.6-2.6); Potassium 3.7 mmol/L (3.3-5.1); Sodium 143 mmol/L (135-145); Total Protein 7.1 g/dL (6.5-8.0)
[2023-04-21 13:34] LABS: Troponin-I High Sensitivity < 2.7 ng/L (<3.5-17.0)
== END 2023-04-21 17:19 | disposition left against medical advice (07) ==
PROVIDERS: Physician Assistant Medical; Emergency Provider Emergency Medicine
DX: M79.602 Pain in left arm (principal)
CPT/HCPCS: 36415; 80053; 83735; 84484; 85025; 85610; 85730; 93005; 99283

== ENCOUNTER 2023-07-19 10:38 | Emergency (ER) | payer MEDICARE, MEDICAID, SELFPAY ==
--- NOTE | 2023-07-19 | ECG_ITS ---
Test Reason : TACHYCARDIA Blood Pressure : / mmHG Vent. Rate : 108 BPM Atrial Rate : 108 BPM P-R Int : 160 ms QRS Dur : 080 ms QT Int : 344 ms P-R-T Axes : 028 012 015 degrees QTc Int : 460 ms Sinus tachycardia Cannot rule out Anterior infarct , age undetermined Abnormal ECG When compared with ECG of 21-APR-2023 12:50, Vent. rate has increased BY 40 BPM Minimal criteria for Anterior infarct are now Present Referred By: Generic ED Physician Electronically Signed By:ADEOLA ZURITA MD
--- NOTE | ~2023-07-19 | XR_ITS ---
EXAMINATION: XR CHEST CLINICAL INFORMATION: Cough for weeks. COMPARISON: None available. TECHNIQUE: 2 views of the chest were obtained. FINDINGS: No significant abnormality is noted involving the heart, lungs, mediastinum, bony thorax or soft tissues. XR/XR chest 2V IMPRESSION: Unremarkable chest examination.
[2023-07-19 10:39] VITALS: BP 158/73; PULSE 116; RESP 20; TEMP 36.6; O2SAT 98; BMI 23.5
[2023-07-19 11:05] LABS: MANUAL DIFF FLAG NO
[2023-07-19 11:06] LABS: Basophils Percent Auto 0.4 % (0-2); Eosinophils Absolute Auto 0.1 X10*3/uL (0.0-0.4); Eosinophils Percent Auto 0.5 % (0-4); Hematocrit 40.8 % (37.0-47.0); Hemoglobin 14.1 g/dl (12.0-16.0); Imm Gran Abs Auto 0.06 X10*3/uL (0.00-0.03); Imm Gran Pct Auto 0.6 % (0.0-0.4); Lymphocytes Absolute Auto 1.2 X10*3/uL (1.2-4.9); Lymphocytes Percent Auto 11.1 % (20-40); Mean Corpuscular HGB Conc 34.6 g/dl (31.0-35.0); Mean Corpuscular Hemoglobin 30.9 pg (27.0-33.0); Mean Corpuscular Volume 89.3 fL (80.0-98.0); Mean Platelet Volume 9.1 fL (9.4-12.3); Monocytes Absolute Auto 0.8 X10*3/uL (0.1-1.2); Monocytes Percent Auto 7.4 % (2-11); Neutrophils Absolute Auto 8.5 x10*3/uL (2.0-8.3); Platelet Count 159 X10*3/uL (160-400); Red Blood Count 4.57 X10*6/uL (4.20-5.50); Red Cell Distribution Width 11.9 % (11.0-16.0); White Blood Count 10.6 X10*3/uL (4.8-10.8)
[2023-07-19 11:19] LABS: Alanine Aminotransferase 22 U/L (0-31); Albumin Level 4.7 g/dL (3.5-5.0); Alkaline Phosphatase 68 U/L (39-117); Anion Gap 14 (12-20); Aspartate Amino Transferase 24 U/L (5-31); Bilirubin Total 0.6 mg/dL (0.0-1.0); Blood Urea Nitrogen 15 mg/dL (9-16); Calcium 9.7 mg/dL (8.4-10.2); Carbon Dioxide 25 mmol/L (22-29); Chloride 105 mmol/L (96-108); Creatinine Clr Calc Pharmacy 49.1; Estimated Glomerular Filt Rate > 60; Glucose Random 120 mg/dL (60-115); Potassium 3.9 mmol/L (3.3-5.1); Sodium 140 mmol/L (135-145); Total Protein 7.6 g/dL (6.5-8.0)
[2023-07-19 11:23] VITALS: BP 161/89; PULSE 108; RESP 14; TEMP 36.6; O2SAT 99
[2023-07-19 11:59] LABS: COVID-19 Test Negative (Negative); IDNOW Serial# 08D9AD1C
[2023-07-19 12:04] LABS: IDNOW Serial# 9DB6401D; Influenza A Negative (Negative); Influenza B2 Negative (Negative)
[2023-07-19 12:35] LABS: Appearance Urine Clear; Color Urine Yellow; Glucose Urine UA Negative (Negative); Leukocyte Esterase Urine Moderate (2+) (Negative); Nitrite Urine Negative (Negative); Specific Gravity - Urine 1.015 (1.005-1.025); UMIC TRIGGER UACC YES; Urine Blood Negative (Negative); Urine Ketones Negative (Negative); Urine Protein Negative (Neg-Trace)
[2023-07-19 12:38] LABS: Bacteria Urine 4+ (None Seen); Hyaline Casts Urine 0-2 /LPF (0-2); RBC Urine 0-2 /HPF (0-2); Squamous Epithelial Cell Urine 0-2 /HPF (0-2); UACC Culture Trigger YES; WBC Urine >50 /HPF (0-5)
--- NOTE | 2023-07-19 13:13 | ED_ITS ---
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 Reports mild headache, denies worse pain at onset, denies worst headache of life. Denies any blurred vision, double vision or other visual changes. Denies any unilateral weakness, numbness, tingling. States that she mentioned right upper jaw pain in triage but clarifies this is not the reason for her visit today. States her primary concern is her fatigue. Denies any chest pain, palpitations, shortness of breath. Denies any abdominal pain, nausea, vomiting, diarrhea. Does report mild nonproductive cough and states that she has new neighbors who are frequently smoking marijuana and she feels that the smoke is exacerbating her cough. She denies fevers. Denies dysuria, frequency, other urinary symptoms but does report a history of frequent UTIs. States that she attempted to contact her PCP but was unable to obtain an appointment. She also notes significant increased stressors over past several weeks including caring for her adult disabled son and making several trips to [place] for his medical care. complaint: fatigue Onset (ago): week(s) Location: head Severity scale (1-10): 2 Quality: aching Associated symptoms: cough Treatments prior to arrival: none Related Data Home Medications Medication Instructions Recorded Confirmed alprazolam 0.25 mg tablet 0.25 mg PO DAILY PRN anxiety 11/30/20 01/18/21 amlodipine 10 mg tablet 10 mg PO DAILY 11/30/20 01/18/21 cholecalciferol (vitamin D3) 50 50 mcg PO DAILY 11/30/20 01/18/21 mcg (2,000 unit) capsule escitalopram oxalate 5 mg tablet 5 mg PO DAILY 11/30/20 01/18/21 hydrochlorothiazide 25 mg tablet 25 mg PO DAILY 11/30/20 01/18/21 levothyroxine 50 mcg tablet 50 mcg PO QAM 11/30/20 01/18/21 lisinopril 5 mg tablet 5 mg PO DAILY 11/30/20 01/18/21 mometasone 0.1 % topical ointment topical 11/30/20 01/18/21 potassium chloride 20 mEq 20 meq PO DAILY 11/30/20 01/18/21 tablet,extended release riboflavin (vitamin B2) 100 mg 100 mg PO DAILY 11/30/20 01/18/21 tablet sennosides 15 mg tablet (Ex-Lax 15 mg PO .QOD 01/18/21 01/18/21 (sennosides)) cephalexin 250 mg capsule 250 mg PO QID 02/11/22 cetirizine 10 mg tablet 10 mg PO DAILY 02/11/22 mirtazapine 15 mg tablet 15 mg PO BEDTIME 02/11/22 Previous Rx's Medication Instructions Recorded ibuprofen 600 mg tablet 600 mg PO TID PRN pain #20 tabs 09/27/21 tramadol 50 mg tablet 50 mg PO BID PRN severe pain 09/27/21 (scale score 7-10) #14 tabs cephalexin 500 mg capsule 500 mg PO Q12H 7 days #14 caps 01/04/22 nitrofurantoin macrocrystal 100 mg 100 mg PO BEDTIME #30 caps 02/11/22 capsule (Macrodantin) amoxicillin 875 mg-potassium 1 tab PO BID UTI 5 days #10 tabs 03/07/22 clavulanate 125 mg tablet hydrocortisone 2.5 % topical cream 1 appl topical BID #30 grams 10/23/22 cefuroxime axetil 500 mg tablet 500 mg PO BID #14 tabs 07/19/23 Allergies Allergy/AdvReac Type Severity Reaction Status Date / Time Sulfa (Sulfonamide Allergy Intermediate RASH Verified 07/19/23 10:43 Antibiotics) [SULFA (SULFONAMIDE ANTIBIOTICS)] lisinopril Allergy Unknown unknown Verified 07/19/23 10:43 prednisone [PREDNISONE] Allergy Unknown VERY Verified 07/19/23 10:43 ANXIOUS, pt cannot remember ENVIRONMENTAL Allergy Intermediate HAYFEVER Uncoded 07/19/23 10:43 Review of Systems 2 Review of Systems: As per HPI. Yes all other systems are reviewed and are negative Constitutional: Constitutional: Reports as per HPI [facility] Past Medical History Medical History Diarrhea Acute gastroenteritis Constipation Radiation proctitis IBS (irritable bowel syndrome) Malignant neoplasm of rectum GERD (gastroesophageal reflux disease) Hx of radiation therapy Hx of cyst of breast Surgical History Hx of tonsillectomy History of esophagogastroduodenoscopy (EGD) Hx of cataract surgery Hx of colonoscopy Hx of hysterectomy Social History Social History Household Members: Children Alcohol intake: current Alcohol intake frequency: does not drink Patient Tobacco Use Status: Never used Tobacco Advance Directives: No Advance Directives Information Provided: Yes Current occupational status: retired Physical Exam ED Vital Signs: Vital Signs - 24 hr 07/19/23 10:39 07/19/23 11:23 Temperature 97.8 F 97.9 F Pulse Rate 116 H 108 H Respiratory Rate 20 14 Blood Pressure 158/73 H 161/89 H Pulse Oximetry 98 99 Oxygen Delivery Method Room Air Room Air BMI result Body Mass Index 23.5 Vital signs have been reviewed and appear to be correct. Blood pressure elevated. Heart rate mildly tachycardic. Respiratory rate normal. Temperature normal. Oxygen saturation normal. Const General: cooperative, healthy appearing and no acute distress Orientation/consciousness: oriented to person, oriented to place, oriented to time and patient oriented x3 Limitations: no limitations HENMT Head: Yes normocephalic and Yes atraumatic Ears: external ears normal, TM's normal bilaterally and EAC's normal General nose exam: Normal external nose present, Normal nasal mucous membranes and turbinates present and Normal septum present Face and sinus: Yes face symmetric Mouth: oropharynx normal and moist mucous membranes Teeth and gingiva: poor dentition and other (no erythema, edema, fluctuance to gingiva) Throat: Yes tonsils normal, Yes uvula midline and No uvular edema Eyes Pupils: Equal, round and reactive pupils present Neck Neck: Yes normal visual inspection and Yes supple Lymphatic: no lymphadenopathy noted Resp Effort & Inspection: normal respiratory effort and able to speak in complete sentences Auscultation: clear to auscultation bilaterally Cardio Rate: regular rate Rhythm: regular rhythm Heart sounds: S1 normal heart sound present and S2 normal heart sound present GI Palpation (GI): Soft to palpation and nontender Auscultation: normoactive bowel sounds General: Yes no CVA tenderness Back/Spine/Pelvis Back: no CVA tenderness Skin General skin exam: elasticity normal and turgor normal Neuro General: oriented to person, oriented to place, oriented to time, patient oriented x3, moves all extremities, no focal motor deficits and CN's II-XI intact bilaterally Cranial nerves: Yes Equal, round and reactive pupils present Cognition (Neuro): normal cognition Extrem General: Yes full ROM, Yes no pedal edema and Yes no calf tenderness Psych Mental Status: mental status grossly normal Affect: normal affect Thought process: Normal thought process present Medical Decision Making Medical Decision Making MDM Narrative: Patient is a 77-year-old female with history of IBS, GERD, 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 On exam patient is awake, A+Ox3, mildly tachycardic, BP elevated, VS otherwise WNL, afebrile, normal neurological exam without focal deficits, physical exam findings as above. Given reported symptoms and physical exam findings, initial differential includes viral illness, bronchitis, pneumonia, UTI, anxiety. Labs notable for left shift without leukocytosis, no significant electrolyte abnormalities, no evidence of SHILOH. Swabs for flu and COVID negative. X-ray chest notable for no evidence of pneumonia. My interpretation is in agreement with the radiologist's interpretation. Urinalysis notable for 2+ leukocytes, greater than 50 wbc's, 4+ bacteria, negative nitrates. Will treat for UTI at this time with cefuroxime. Instructed patient to follow up with PCP for further evaluation of symptoms. Return precautions discussed at bedside. Patient verbalized understanding of and agreement with plan of care. Differential Diagnosis Differential Diagnoses: The differential diagnosis associated with the presentation includes As per MDM. Admission/Observation Consideration of admission/observation: Escalation of care including admission/observation considered Lab Data [facility] Lab Attestation statement: I reviewed the patient's lab results. As per MDM. 07/19/23 10:56 07/19/23 10:56 Labs: Lab Results 07/19/23 07/19/23 07/19/23 Range/Units 10:56 11:09 12:26 WBC 10.6 (4.8-10.8) X10*3/uL RBC 4.57 (4.20-5.50) X10*6/uL Hgb 14.1 (12.0-16.0) g/dl Hct 40.8 (37.0-47.0) % MCV 89.3 (80.0-98.0) fL MCH 30.9 (27.0-33.0) pg MCHC 34.6 (31.0-35.0) g/dl RDW 11.9 (11.0-16.0) % Plt Count 159 L (160-400) X10*3/uL MPV 9.1 L (9.4-12.3) fL Immature Gran % (Auto) 0.6 H (0.0-0.4) % Neut % (Auto) 80.0 H (45-73) % Lymph % (Auto) 11.1 L (20-40) % [place] % (Auto) 7.4 (2-11) % Eos % (Auto) 0.5 (0-4) % Baso % (Auto) 0.4 (0-2) % Lymph # (Auto) 1.2 (1.2-4.9) X10*3/uL [place] # (Auto) 0.8 (0.1-1.2) X10*3/uL Eos # (Auto) 0.1 (0.0-0.4) X10*3/uL Baso # (Auto) 0.0 (0.0-0.2) X10*3/uL Abs Immat Gran (auto) 0.06 H (0.00-0.03) X10*3/uL Absolute Neuts (auto) 8.5 H (2.0-8.3) x10*3/uL Absolute Nucleated RBC 0.000 (0.0-0.012) X10*3/uL Nucleated RBC % (auto) 0.0 (0.0-0.2) /100WBC Sodium 140 (135-145) mmol/L Potassium 3.9 (3.3-5.1) mmol/L Chloride 105 (96-108) mmol/L Carbon Dioxide 25 (22-29) mmol/L Anion Gap 14 (12-20) BUN 15 (9-16) mg/dL Creatinine 0.71 (0.5-1.4) mg/dL Estim Creat Clear Calc 49.1 Estimated GFR > 60 Random Glucose 120 H (60-115) mg/dL Calcium 9.7 (8.4-10.2) mg/dL Total Bilirubin 0.6 (0.0-1.0) mg/dL AST 24 (5-31) U/L ALT 22 (0-31) U/L Alkaline Phosphatase 68 (39-117) U/L Total Protein 7.6 (6.5-8.0) g/dL Albumin 4.7 (3.5-5.0) g/dL Urine Color Yellow Urine Appearance Clear Urine pH 7.0 (5.0-9.0) Ur Specific [place] 1.015 (1.005-1.025) Urine Protein Negative (Neg-Trace) mg/dL Urine Glucose (UA) Negative (Negative) mg/dL Urine Ketones Negative (Negative) mg/dL Urine Blood Negative (Negative) Urine Nitrite Negative (Negative) Ur Leukocyte Esterase Moderate (2+) H (Negative) Urine RBC 0-2 (0-2) /HPF Urine WBC >50 H (0-5) /HPF Ur Squamous Epith Cells 0-2 (0-2) /HPF Urine Bacteria 4+ (None Seen) Hyaline Casts 0-2 (0-2) /LPF COVID-19 (LIZETT) Negative (Negative) COVID-19 Clin Com See Note Influenza Type A (ZEINA) Negative (Negative) Influenza Type B (ZEINA) Negative (Negative) Influenza A & B Note See Note Independent Interpretation I performed an independent interpretation of an: Plain X-Ray Interpretation: No evidence of pneumonia on chest x-ray Radiology Impression Discussion of test interpretation with radiology: I have reviewed the radiologist's reading. Radiologist Impression: XR/XR chest 2V IMPRESSION: Unremarkable chest examination. External Record Review External record reviewed: Inpatient record, Office record and Outpatient record Prescription Management I considered prescription management with: Antibiotic Discharge Plan Discharge Clinical Impression: Urinary tract infection Patient Disposition: Home, Self-Care Instructions: Urinary Tract Infection in Older Adults (ED) Additional Instructions: You have been evaluated in the emergency department today for your symptoms. Your evaluation, including urinalysis, suggests that your symptoms are due to urinary tract infection. Please take your prescribed antibiotics for the full course of medication as directed. Please follow-up with your primary care provider within 2 days. Return to the emergency department if you experience fevers 100.4? F or greater, worsening or uncontrolled pain, vomiting, flank pain, or for any other concerning symptoms. Prescriptions: New cefuroxime axetil 500 mg tablet 500 mg PO BID Qty: 14 0RF No Action amoxicillin-pot clavulanate 875-125 mg tablet 1 tab PO BID 5 Days Qty: 10 0RF ibuprofen 600 mg tablet 600 mg PO TID PRN (Reason: pain) Qty: 20 0RF tramadol 50 mg tablet 50 mg PO BID PRN (Reason: severe pain (scale score 7-10)) Qty: 14 0RF cephalexin 500 mg capsule 500 mg PO Q12H 7 Days Qty: 14 0RF hydrocortisone 2.5 % cream 1 appl topical BID Qty: 30 0RF mometasone 0.1 % ointment topical amlodipine 10 mg tablet 10 mg PO DAILY escitalopram oxalate 5 mg tablet 5 mg PO DAILY levothyroxine 50 mcg tablet 50 mcg PO QAM potassium chloride 20 mEq tablet extended release 20 meq PO DAILY hydrochlorothiazide 25 mg tablet 25 mg PO DAILY cholecalciferol (vitamin D3) 50 mcg (2,000 unit) capsule 50 mcg PO DAILY lisinopril 5 mg tablet 5 mg PO DAILY alprazolam 0.25 mg tablet 0.25 mg PO DAILY PRN (Reason: anxiety) riboflavin (vitamin B2) 100 mg tablet 100 mg PO DAILY Ex-Lax (sennosides) 15 mg tablet 15 mg PO .QOD mirtazapine 15 mg tablet 15 mg PO BEDTIME cephalexin 250 mg capsule 250 mg PO QID cetirizine 10 mg tablet 10 mg PO DAILY nitrofurantoin macrocrystal [Macrodantin] 100 mg capsule 100 mg PO BEDTIME Qty: 30 3RF Rx Instructions: must administer with a meal/food
== END 2023-07-19 13:32 | disposition home or self-care (01) ==
PROVIDERS: Registered Nurse Emergency; Emergency Provider Student in an Organized Health Care Education/Training Program
DX: N39.0 Urinary tract infection, site not specified (principal); Z11.52 Encounter for screening for COVID-19; Z85.048 Personal history of other malignant neoplasm of rectum, rectosigmoid junction, and anus; Z92.3 Personal history of irradiation
CPT/HCPCS: 36415; 71046; 80053; 81001; 85025; 87086; 87502; 87635; 93005; 99283; 99284

== ENCOUNTER → 2023-07-19 10:49 | Outpatient (BNV) | payer MEDICARE, MEDICAID, SELFPAY | PROVIDERS: Emergency Provider Student in an Organized Health Care Education/Training Program; Visit Provider Internal Medicine Cardiovascular Disease | DX: R00.0 Tachycardia, unspecified (principal) | CPT/HCPCS: 93010 ==

== ENCOUNTER 2025-02-18 11:45 | Outpatient (REF) | payer MEDICARE, MEDICAID, SELFPAY ==
--- OUTSIDE RECORDS SUMMARY | 2025-02-18 11:49 | XMS_ITS | Encounter Summary ---
Author Organization [employer] Address [address] [place] [address] Care Team Providers Care Client Support Professional Name Role Phone Denny Sophie [facility] Primary Care Provider [phone] Karen Alcazar Unavailable Unavailable Reason for Visit * Reason Comments Med Refill Encounter Details Date Type Department Care Team ([facility] Contact Info) Description 09/30/[address] [facility] MEDICAL [address] [place] [address] Sophie Baldwin, [facility] [address] [place] [address] Med Refill Social History Tobacco Use Types Packs/Day Years Used Date Smoking Tobacco: Former Cigarettes Smokeless Tobacco: Never Overall Financial Resource Strain (CARDIA) Answe r Date Recorded How hard is it for you to pa y for the very basics like food, housing, medical care, and heating? Somewhat hard 03/11/2023 Alcohol Answer Date Recorded Q1: How often do you have a drink containing alc ohol? 1 03/11/2023 Q2: How many drinks containi ng alcohol do you have on a typical day when you are drinking? 0 03/11/2023 Q3: How often do you have six or more drinks on one occasion? 1 03/11/2023 Depression Answer Date Recorded Patient Health Questionnaire-9 Score 4 02/24/2023 Housing Stability Answer Date Recorded What is your housing situation today? I have rosa isela ramirez 10/31/[address] you li ve. Do you have problems with any of the following? None of the above 10/31/2023 Food Insecurity Answer Date Recorded Within the past 12 months, y ou worried that your food would run out before you got money to buy more: Never True 10/31/2023 Within the past 12 months,th e food you bought just didn't last and you didn't have enough money to get more: Never True 11/2023 Transportation Answer Date Recorded In the past 12 months, has l ack of transportation kept you from medical appts, meetings, work or from getting things needed for daily living? No 10/31/2023 Intimate Partner Violence Answer Date R ecorded Within the last year, have y ou been afraid of your partner or ex-partner? 2 03/11/2023 Within the last year, have y ou been humiliated or emotionally abused in other ways by your partner or ex-partner? 2 Within the last year, have y ou been kicked, hit, slapped, or otherwise physically hurt by your partner or ex-partner? 2 03/11/2023 Within the last year, have y ou been raped or forced to have any kind of sexual activity by your partner or ex-partner? 2 03/11/2023 Utilities Answer Date Recorded In the past 12 months, has t he [employer], [employer], oil or water [employer] threatened to shut off services in your home? No 10/31/2023 Depression Answer Date Recorded Patient Health Questionnaire-2 Score 2 02/24/2023 Comments Unknown Sex and Gender Information Value Date Recorded Sex Assigned at Female 05/29/2022 4:23 PM EDT Legal Sex Female 8:38 PM EDT Gender Identity Female 07/24/2022 1:59 PM EST Sexual Orientation Straight 02/07/2023 10 :20 AM EDT documented as of this encounter Miscellaneous Notes * Telephone Encounter - Camelia Ross - 10/19/2024 10:14 AM EDT LMOM and sent out a letter. * Telephone Encounter - Renata Marinelli - 10/13/2024 3:37 PM EDT Lmom to schedule an appt * Telephone Encounter - Renata Marinelli - 10/06/2024 11:48 AM EDT LMOM to schedule follow up. * Telephone Encounter - Chayo Martines - 10/05/2024 12:25 PM EDT Left message for patient to return call to schedule appointment with [facility]. * Telephone Encounter - SARY Hussein - 2024 11:44 AM EST 50 mcg levothyroxine refill requested, she is not on 50 mcg, on 75 mcg. 75 mcg refilled. Needs in person follow up scheduled with me. documented in this encounter Plan of Treatment Upcoming Encounters Date Type Department Care Team (Late st Contact Info) Description 02/25/2025 1:40 PM EDT Office Visit Son[facility] MEDICAL [address] [place] [address] Sophie Baldwin FNP [address] [place] [address] documented as of this encounter Visit Diagnoses Diagnosis Acquired hypothyroidism Unspecified hypothyroidism documented in this encounter Additional Health Concerns Assessment Noted Time PHQ-9 Depression Total Score: 4 02/25/20 23 10:11 AM EDT documented as of this encounter Care Teams Client Support Professional Relationship Specialty Start Date End Date Sophie Baldwin FNP [address] [facility] [address] PCP - General Family Medicine 07/24/22 Karen Alcazar Community Health Worker 11/14/23 documented as of this encounter
--- OUTSIDE RECORDS SUMMARY | 2025-02-18 11:49 | XMS_ITS | Encounter Summary ---
Author Organization [facility] Address [address] [place] [address] [address] [place] [address] Phone Care Team Providers Care Carpet Inspector Name Role Phone Ya Perales Primary Care Provider [phone] Unknown, Unknown Primary Care Provider [place], [place] Hilda MOSLEY Primary Care Provider Encounter Details Date Type Department Care Team (Late st Contact Info) Description 05/05/2018 Transcribe Orders [facility] Rehabilitation Services [address] [place] [address] Lawanda Huynh MD [address] [place] [phone] [email or web address] Social History Tobacco Use Types Packs/Day Years Used Date Smoking Tobacco: Never Smokeless Tobacco: Never Comments Unknown Sex and Gender Information Value Date Recorded Sex Assigned at Not on file Legal Sex Female 10:06 PM EDT Gender Identity Not on file Sexual Orientation Not on file documented as of this encounter Plan of Treatment Not on file documented as of this encounter Visit Diagnoses Not on filedocumented in this encounter Care Teams Carpet Inspector Relationship Specialty Start Date End Date Ya Perales PA [address] [place] [address] [place] [address] PCP - General Unknown Provider Specialty 08/28/17 Unknown, Unknown, PCP - General 04/21/23 03/03/24 Sophie Baldwin NP PCP - General Nurse Practitioner 03/04/24 documented as of this encounter Additional Source Comments The information contained in this document represents components of the legal health record. It is not the complete legal health record.[facility]
[2025-02-18 12:08] LABS: MANUAL DIFF FLAG NO
[2025-02-18 12:13] LABS: Hematocrit 35.3 % (37.0-47.0); Hemoglobin 12.6 g/dl (12.0-16.0); Imm Gran Abs Auto 0.01 X10*3/uL (0.00-0.03); Imm Gran Pct Auto 0.2 % (0.0-0.4); Lymphocytes Absolute Auto 1.9 X10*3/uL (1.2-4.9); Mean Corpuscular HGB Conc 35.7 g/dl (31.0-35.0); Mean Corpuscular Hemoglobin 30.7 pg (27.0-33.0); Mean Corpuscular Volume 86.1 fL (80.0-98.0); NRBC Abs Auto 0.000 X10*3/uL (0.0-0.012); NRBC Pct Auto 0.0 /100WBC (0.0-0.2); Platelet Count 166 X10*3/uL (160-400); Red Blood Count 4.10 X10*6/uL (4.20-5.50); White Blood Count 5.3 X10*3/uL (4.8-10.8)
[2025-02-18 12:47] LABS: Alanine Aminotransferase 17 U/L (0-31); Albumin Level 4.5 g/dL (3.5-5.0); Alkaline Phosphatase 60 U/L (39-117); Anion Gap 14 (12-20); Aspartate Amino Transferase 26 U/L (5-31); Blood Urea Nitrogen 16 mg/dL (9-16); Calcium 9.6 mg/dL (8.4-10.2); Carbon Dioxide 24 mmol/L (22-29); Chloride 103 mmol/L (96-108); Cholesterol 178 mg/dL (<200); Estimated Glomerular Filt Rate > 60; HDL Cholesterol 51 mg/dL (>40); Potassium 3.8 mmol/L (3.3-5.1); Sodium 137 mmol/L (135-145); Total Protein 7.0 g/dL (6.5-8.0); Triglycerides 86 mg/dL (<150)
[2025-02-18 12:58] LABS: Thyroid Stimulating Hormone 0.26 uIU/mL (0.32-4.0)
[2025-02-18 13:04] LABS: Vitamin B12 553 pg/mL (200-900)
== END 2025-02-18 11:46 | disposition home or self-care (01) ==
LOC: HO.LAB 11:45
PROVIDERS: PCP Nurse Practitioner; Visit Provider Nurse Practitioner
DX: Z13.220 Encounter for screening for lipoid disorders (principal); R41.3 Other amnesia
CPT/HCPCS: 36415; 80053; 80061; 82607; 84443; 85025

== ENCOUNTER 2025-03-03 15:52 | Outpatient (REF) | payer MEDICARE, MEDICAID, SELFPAY ==
--- NOTE | ~2025-03-03 | XR_ITS ---
EXAMINATION: XR ABDOMEN COMPLETE CLINICAL INDICATION: eval for stool burden COMPARISON: None available. TECHNIQUE: 2 views of the abdomen. FINDINGS: There is scattered stool seen throughout the colon without distention. The small bowel loops are nondistended. No organomegaly. No radiopaque calculi. There is mild dextroscoliosis of dorsolumbar spine. No aggressive lytic or sclerotic process seen. XR/XR abdomen min 2V IMPRESSION: Mild constipation. Electronically signed by: Sergey Falcon MD 03/03/2025 04:47 PM EDT RP
--- OUTSIDE RECORDS SUMMARY | 2025-03-03 15:57 | XMS_ITS | Encounter Summary ---
Author Organization [facility] Address [address] [place] [address] [address] [place] [address] Phone Care Team Providers Care Pizza Baker Name Role Phone Ya Perales PA-C Primary Care Provider [phone] [phone] Unknown, Unknown Primary Care Provider [place], [place] Hilda [facility] Primary Care Provide r Encounter Details Date Type Department Care Team (Late st Contact Info) Description 05/05/2018 Transcribe Orders [facility] Rehabilitation Services [address] [place] [address] Lawanda Huynh MD [address] [place] [id number] [email or web address] Social History Tobacco Use Types Packs/Day Years [...] on filedocumented in this encounter Care Teams Pizza Baker Relationship Specialty Start Date End Date Ya Perales PA-C [address] [place] [address] [place] [address] PCP - General Unknown Provider Specialty 08/28/17 Unknown, Unknown, PCP - General 04/21/23 03/03/24 Sophie Baldwin FNP PCP - General Nurse Practitioner 03/04/24 documented as of this encounter Additional Source Comments The information contained in this document represents components of the legal health record. It is not the complete legal health record.[facility]
--- OUTSIDE RECORDS SUMMARY | 2025-03-03 15:57 | XMS_ITS | Encounter Summary ---
Author Organization [employer] Address [address] [facility] [address] [place] [address] Care Team Providers Care Wood Gluer Name Role Phone Sophie Baldwin [facility] Primary Care Provider [phone] Karen Alcazar Unavailable Unavailable Reason for Visit * Reason Comments Med Refill Encounter Details Date Type Department Care Team ([facility] Contact Info) Description 09/30/2024 Telephone [facility] MEDICAL [address] [place] [address] Sophie Baldwin, [facility] [address] [place] [address] Med Refill Social History Tobacco Use Types [...] the past 12 months, has t he [employer], [employer], oil or water [employer] threatened to shut off services in your [...] with VF. * Telephone Encounter - SARY Husesin - 2024 11:44 AM EST 50 mcg levothyroxine refill requested, she is not on 50 mcg, on 75 mcg. 75 mcg refilled. Needs in person follow up scheduled with me. documented in this encounter Plan of Treatment Upcoming Encounters Date Type Department Care Team (Late st Contact Info) Description 05/05/2025 1:40 PM EDT Office Visit Soniya [facility] MEDICAL [address] [place] [address] Sophie Baldwin FNP [address] [place] [address] documented as of this encounter Visit Diagnoses Diagnosis Acquired hypothyroidism Unspecified hypothyroidism documented in this encounter Additional Health Concerns Assessment Noted Time PHQ-9 Depression Total Score: 4 02/25/20 23 10:11 AM EDT documented as of this encounter Care Teams Wood Gluer Relationship Specialty Start Date End Date Sophie Baldwin FNP [address] [facility] [place] [address] PCP - General Family Medicine 07/24/22 Karen Alcazar Community Health Worker 11/14/23 documented as of this encounter
--- OUTSIDE RECORDS SUMMARY | 2025-04-28 20:00 | XMS_ITS | Clinical Summary ---
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 Active 8 00:00: 00 COGNITIVE COMMUNICATIO N DEFICIT Active 02-25 00:00: 00 XEROSIS CUTIS Active 02-25 00:00: 00 ESSENTIAL (PRIMARY) HYPERTENSION Active 02-25 00:00: 00 AGE-RELATED OSTEOPOROSIS W/O CURRENT PATHOLOGICAL FRACTURE Active 8 00:00: 00 FATTY (CHANGE OF) LIVER, NOT ELSEWHERE CLASSIFIED Active 8 00:00: 00 DEPRESSION, UNSPECIFIED Active 8 00:00: 00 ANXIETY DISORDER, UNSPECIFIED Active 8 00:00: 00 PRIMARY INSOMNIA Active 8 00:00: 00 HYPOKALEMIA Active 8 00:00: 00 HYPOTHYROIDI SM, UNSPECIFIED Active 8 00:00: 00 HYPERLIPIDEM IA, UNSPECIFIED Active 8 00:00: 00 PREDIABETES Active 8- 00:00: 00 PERSONAL HISTORY OF URINARY (TRACT) INFECTIONS Active 8 00:00: 00 PERSONAL HISTORY OF MALIGNANT NEOPLASM OF LARGE INTESTINE Active 02-25 00:00: 00 PERSONAL HISTORY OF NICOTINE DEPENDENCE Active 02-25 00:00: 00 Allergies, Adverse Reactions, Alerts Allergy Name Allergy Type Status Severity Reaction(s) Onset Date Inactive Date Treating Clinician Comments ASPIRIN Propensity to adverse reactions Active 2025-02 11:15:1 8 NSAIDS Propensity to adverse reactions Active 2025-02 11:19:5 6 -SULFA- Propensity to adverse reactions Active 2025-02 11:20:0 1 Vital Signs Vital Name Observation Time Observation Value Commen ts Temperature 2025-03-01 11:47:00.000 97.4 [degF] BMI (%) 2025-03-01 11:30:09.000 19 kg/m2 Height 2025-03-01 11:28:18.000 60 [in_us] Pulse 2025-03-01 11:47:00.000 80 /min O2 Saturation (%) 2025-03-01 11:47:00.000 98 % Respirations 2025-03-01 11:47:00.000 18 /min Weight (lbs) 2025-03-01 11:30:09.000 101 [lb_av] Systolic Blood Pressure 2025-03-01 11:47:00.000 122 mm [Hg] Diastolic Blood Pressure 2025-03-01 11:47:00.000 68 mm [Hg] Plan of Treatment Planned Activity Planned Date Details Comments Future Scheduled Test FALL REDUC TION MANAGEMENT; RN TO ASSESS AND OBSERVE, INBOUND CUSTOMER SERVICE AGENT/SERVER PROGRAMMER TO OBSERVE FALL RISK FACTORS AND EDUCATE PATIENT/CAREGIVER ON STRATEGIES TO MINIMIZE THE RISK OF FALLING. [code = FALL REDUCTION MANAGEMENT; RN TO ASSESS AND OBSERVE, INBOUND CUSTOMER SERVICE AGENT/SERVER PROGRAMMER TO OBSERVE FALL RISK FACTORS AND EDUCATE PATIENT/CAREGIVER ON STRATEGIES TO MINIMIZE THE RISK OF FALLING.] Future Scheduled Test GENITOURIN NUPUR MANAGEMENT; RN TO ASSESS AND TEACH, INBOUND CUSTOMER SERVICE AGENT/SERVER PROGRAMMER TO OBSERVE AND TEACH RELATED TO ALTERED GENITOURINARY STATUS TO MINIMIZE COMPLICATIONS AND REDUCE HOSPITALIZATION. [code = GENITOURINARY MANAGEMENT; RN TO ASSESS AND TEACH, INBOUND CUSTOMER SERVICE AGENT/SERVER PROGRAMMER TO OBSERVE AND TEACH RELATED TO ALTERED GENITOURINARY STATUS TO MINIMIZE COMPLICATIONS AND REDUCE HOSPITALIZATION.] Future Scheduled Test URINARY IN CONTINENCE MANAGEMENT; RN TO ASSESS AND TEACH, INBOUND CUSTOMER SERVICE AGENT/LVNTO OBSERVE AND TEACH MANAGEMENT OF URINARY INCONTINENCE. TEACH/INSTRUCT ON PREVENTING INFECTION AND SKIN BREAKDOWN. RN/INBOUND CUSTOMER SERVICE AGENT/SERVER PROGRAMMER MAY INSTRUCT IN BLADDER TRAINING PROGRAM INDICATED. [code = URINARY INCONTINENCE MANAGEMENT; RN TO ASSESS AND TEACH, INBOUND CUSTOMER SERVICE AGENT/LVNTO OBSERVE AND TEACH MANAGEMENT OF URINARY INCONTINENCE. TEACH/INSTRUCT ON PREVENTING INFECTION AND SKIN BREAKDOWN. RN/INBOUND CUSTOMER SERVICE AGENT/SERVER PROGRAMMER MAY INSTRUCT IN BLADDER TRAINING PROGRAM INDICATED.] Future Scheduled Test URINARY TR ACT INFECTION MANAGEMENT; RN/SERVER PROGRAMMER/INBOUND CUSTOMER SERVICE AGENT TO PROVIDE SKILLED TEACHING AND SELF- CARE MANAGEMENT RELATED TO UTI TO MINIMIZE COMPLICATIONS AND REDUCE THE RISK OF HOSPITALIZATION. [code = URINARY TRACT INFECTION MANAGEMENT; RN/SERVER PROGRAMMER/INBOUND CUSTOMER SERVICE AGENT TO PROVIDE SKILLED TEACHING AND SELF- CARE MANAGEMENT RELATED TO UTI TO MINIMIZE COMPLICATIONS AND REDUCE THE RISK OF HOSPITALIZATION.] Future Scheduled Test HYPOTHYROI D MGT MONITOR FOR S/S FATIGURE, CONSTIPATION, WEIGHT GAIN, MUSCLE WEAKNESS [code = HYPOTHYROID MGT MONITOR FOR S/S FATIGURE, CONSTIPATION, WEIGHT GAIN, MUSCLE WEAKNESS] Future Scheduled Test NEUROLOGIC AL SYSTEM MANAGEMENT; RN TO ASSESS AND TEACH, SERVER PROGRAMMER/INBOUND CUSTOMER SERVICE AGENT TO OBSERVE AND TEACH RELATED TO ALTERED NEUROLOGICAL STATUS TO MINIMIZE COMPLICATIONS AND REDUCE HOSPITALIZATION. [code = NEUROLOGICAL SYSTEM MANAGEMENT; RN TO ASSESS AND TEACH, SERVER PROGRAMMER/INBOUND CUSTOMER SERVICE AGENT TO OBSERVE AND TEACH RELATED TO ALTERED NEUROLOGICAL STATUS TO MINIMIZE COMPLICATIONS AND REDUCE HOSPITALIZATION.] Future Scheduled Test RN TO OBSE RVE, ASSESS, EVALUATE, AND DEVELOP AN INDIVIDUALIZED PLAN OF CARE. AGENCY MAY ACCEPT ORDERS FROM CONSULTING PHYSICIANS RN TO OBSERVE AND ASSESS, INBOUND CUSTOMER SERVICE AGENT/SERVER PROGRAMMER TO OBSERVE FOR RISK FOR FALLS AND INSTRUCT IN FALL PREVENTION, HOME SAFETY, MEDICATION MANAGEMENT, INFECTION PREVENTION, AND NUTRITION MANAGEMENT. RN/INBOUND CUSTOMER SERVICE AGENT/SERVER PROGRAMMER NURSE MAY PERFORM O2 SATURATION LEVEL ON ADMISSION AND PRN FOR RN TO ASSESS/INBOUND CUSTOMER SERVICE AGENT TO OBSERVE PATIENT, WITH NOTIFICATION TO THE PHYSICIAN IF SATURATION IS 90% IN THE ABSENCE OF MORE SPECIFIC PARAMETERS FROM THE PHYSICIAN. AGENCY MAY PERFORM A RESUMPTION OF CARE VISIT FOLLOWING ANY HOSPITAL ADMISSION. RN/INBOUND CUSTOMER SERVICE AGENT/SERVER PROGRAMMER TO MONITOR CO-MORBID CONDITIONS LISTED ON THE PLAN OF CARE AND ANY NEW CONDITIONS THAT PRESENT THEMSELVES DURING THIS EPISODE TO IDENTIFY CHANGES AND INTERVENE TO MINIMIZE COMPLICATIONS. [code = RN TO OBSERVE, ASSESS, EVALUATE, AND DEVELOP AN INDIVIDUALIZED PLAN OF CARE. AGENCY MAY ACCEPT ORDERS FROM CONSULTING PHYSICIANS RN TO OBSERVE AND ASSESS, INBOUND CUSTOMER SERVICE AGENT/SERVER PROGRAMMER TO OBSERVE FOR RISK FOR FALLS AND INSTRUCT IN FALL PREVENTION, HOME SAFETY, MEDICATION MANAGEMENT, INFECTION PREVENTION, AND NUTRITION MANAGEMENT. RN/INBOUND CUSTOMER SERVICE AGENT/SERVER PROGRAMMER NURSE MAY PERFORM O2 SATURATION LEVEL ON ADMISSION AND PRN FOR RN TO ASSESS/INBOUND CUSTOMER SERVICE AGENT TO OBSERVE PATIENT, WITH NOTIFICATION TO THE PHYSICIAN IF SATURATION IS 90% IN THE ABSENCE OF MORE SPECIFIC PARAMETERS FROM THE PHYSICIAN. AGENCY MAY PERFORM A RESUMPTION OF CARE VISIT FOLLOWING ANY HOSPITAL ADMISSION. RN/INBOUND CUSTOMER SERVICE AGENT/SERVER PROGRAMMER TO MONITOR CO-MORBID CONDITIONS LISTED ON THE PLAN OF CARE AND ANY NEW CONDITIONS THAT PRESENT THEMSELVES DURING THIS EPISODE TO IDENTIFY CHANGES AND INTERVENE TO MINIMIZE COMPLICATIONS.] Future Scheduled Test GASTROINTE STINAL MANAGEMENT; RN TO ASSESS AND TEACH, SERVER PROGRAMMER/INBOUND CUSTOMER SERVICE AGENT TO OBSERVE AND TEACH RELATED TO ALTERED GASTROINTESTINAL STATUS TO MINIMIZE COMPLICATIONS AND REDUCE HOSPITALIZATION. [code = GASTROINTESTINAL MANAGEMENT; RN TO ASSESS AND TEACH, SERVER PROGRAMMER/INBOUND CUSTOMER SERVICE AGENT TO OBSERVE AND TEACH RELATED TO ALTERED GASTROINTESTINAL STATUS TO MINIMIZE COMPLICATIONS AND REDUCE HOSPITALIZATION.] Future Scheduled Test MALNUTRITI ON MANAGEMENT; RN TO ASSESS AND TEACH, SERVER PROGRAMMER/INBOUND CUSTOMER SERVICE AGENT TO OBSERVE AND TEACH AND INSTRUCT PATIENT / CAREGIVER ON INTERVENTIONS TO IMPROVE NUTRITIONAL INTAKE AND PATIENT WELLBEING. [code = MALNUTRITION MANAGEMENT; RN TO ASSESS AND TEACH, SERVER PROGRAMMER/INBOUND CUSTOMER SERVICE AGENT TO OBSERVE AND TEACH AND INSTRUCT PATIENT / CAREGIVER ON INTERVENTIONS TO IMPROVE NUTRITIONAL INTAKE AND PATIENT WELLBEING.] Future Scheduled Test PAIN MANAG EMENT; RN TO ASSESS AND TEACH, SERVER PROGRAMMER/INBOUND CUSTOMER SERVICE AGENT TO OBSERVE AND TEACH AND PROVIDE EDUCATION ON PAIN MANAGEMENT TECHNIQUES. [code = PAIN MANAGEMENT; RN TO ASSESS AND TEACH, SERVER PROGRAMMER/INBOUND CUSTOMER SERVICE AGENT TO OBSERVE AND TEACH AND PROVIDE EDUCATION ON PAIN MANAGEMENT TECHNIQUES.] Future Scheduled Test PRN VISITS ; NUMBER OF RN/INBOUND CUSTOMER SERVICE AGENT/SERVER PROGRAMMER VISITS: 3 RN/INBOUND CUSTOMER SERVICE AGENT/SERVER PROGRAMMER TO PERFORM: ASSESSMENT FOR THE FOLLOWING REASONS: CHRONIC UTI [code = PRN VISITS; NUMBER OF RN/INBOUND CUSTOMER SERVICE AGENT/SERVER PROGRAMMER VISITS: 3 RN/INBOUND CUSTOMER SERVICE AGENT/SERVER PROGRAMMER TO PERFORM: ASSESSMENT FOR THE FOLLOWING REASONS: CHRONIC UTI] Future Scheduled Test RISK FOR H OSPITALIZATION; RN TO ASSESS/TEACH, SERVER PROGRAMMER/INBOUND CUSTOMER SERVICE AGENT TO OBSERVE/TEACH PATIENT/CAREGIVER ON RISK FOR HOSPITALIZATION/EMERGENCY ROOM VISITS, TEACH SIGNS AND SYMPTOMS THAT PUT PATIENT AT RISK, WHEN TO NOTIFY NURSE/PHYSICIAN OF COMPLICATIONS/DECLINE, AND WHEN TO CALL 911. [code = RISK FOR HOSPITALIZATION; RN TO ASSESS/TEACH, SERVER PROGRAMMER/INBOUND CUSTOMER SERVICE AGENT TO OBSERVE/TEACH PATIENT/CAREGIVER ON RISK FOR HOSPITALIZATION/EMERGENCY ROOM VISITS, TEACH SIGNS AND SYMPTOMS THAT PUT PATIENT AT RISK, WHEN TO NOTIFY NURSE/PHYSICIAN OF COMPLICATIONS/DECLINE, AND WHEN TO CALL 911.] Future Scheduled Test CARDIOVASC ULAR SYSTEM; RN TO ASSESS/TEACH, INBOUND CUSTOMER SERVICE AGENT/SERVER PROGRAMMER TO OBSERVE/TEACH RELATED TO ALTERED CARDIOVASCULAR STATUS TO MINIMIZE COMPLICATIONS AND REDUCE HOSPITALIZATION. [code = CARDIOVASCULAR SYSTEM; RN TO ASSESS/TEACH, INBOUND CUSTOMER SERVICE AGENT/SERVER PROGRAMMER TO OBSERVE/TEACH RELATED TO ALTERED CARDIOVASCULAR STATUS TO MINIMIZE COMPLICATIONS AND REDUCE HOSPITALIZATION.] Future Scheduled Test MEDICATION MANAGEMENT; RN/INBOUND CUSTOMER SERVICE AGENT/SERVER PROGRAMMER TO REVIEW MEDICATIONS FOR INTERACTIONS, EFFECTIVENESS OF DRUG THERAPY, AND SIGNS/SYMPTOMS OF ADVERSE REACTIONS. MAY INSTRUCT AND REINFORCE MEDICATION TEACHING RELATED TO THE USE OF MEDICATIONS, DOSAGE, FREQUENCY, PURPOSE, SIDE EFFECTS, AND TO REPORT COMPLICATIONS. [code = MEDICATION MANAGEMENT; RN/INBOUND CUSTOMER SERVICE AGENT/SERVER PROGRAMMER TO REVIEW MEDICATIONS FOR INTERACTIONS, EFFECTIVENESS OF DRUG THERAPY, AND SIGNS/SYMPTOMS OF ADVERSE REACTIONS. MAY INSTRUCT AND REINFORCE MEDICATION TEACHING RELATED TO THE USE OF MEDICATIONS, DOSAGE, FREQUENCY, PURPOSE, SIDE EFFECTS, AND TO REPORT COMPLICATIONS.] Goal Patient Goal - T O STAY STRONG AND IN THE HOME Goal Provider Goal - PATIENT/CAREGIVER WILL VERBALIZE/DEMONSTRATE UNDERSTANDING OF FALL RISK FACTORS AND IMPLEMENT STRATEGIES TO MINIMIZE FALL RISK. PATIENT/CAREGIVER WILL VERBALIZE/DEMONSTRATE AN ABILITY TO ADHERE TO FALL REDUCTION SELF-MANAGEMENT AND LIFE-STYLE CHANGES BY EOE Goal Provider Goal - PATIENT / CAREGIVER WILL VERBALIZE/DEMONSTRATE UNDERSTANDING OF MEASURES TO MANAGE ALTERED GENITOURINARY STATUS BY END OF EPISODE. Goal Provider Goal - PATIENT/CAREGIVER WILL VERBALIZE/DEMONSTRATE UNDERSTANDING OF CARE AND MANAGEMENT OF URINARY INCONTINENCE BY EOE Goal Provider Goal - PATIENT/CAREGIVER WILL VERBALIZE/DEMONSTRATE UNDERSTANDING OF CARE AND MANAGEMENT OF URINARY TRACT INFECTION BY EOE Goal Provider Goal - PATIENT / CAREGIVER WILL VERBALIZE / DEMONSTRATE AN ABILITY TO ADHERE TO SELF-MANAGEMENT OF HYPOTHYROID MANAGEMENT BY EOE Goal Provider Goal - PATIENT / CAREGIVER WILL VERBALIZE/DEMONSTRATE UNDERSTANDING OF MEASURES TO MANAGE ALTERED NEUROLOGICAL STATUS BY EOE Goal Provider Goal - A PLAN OF CARE WILL BE ESTABLISHED THAT MEETS THE PATIENTS NEEDS. PATIENT WILL DEMONSTRATE OXYGEN SATURATION WITHIN NORMAL LIMITS OR PATIENTS OPTIMAL LEVEL ESTABLISHED BY THE PHYSICIAN THROUGHOUT CARE. CHANGES TO CO-MORBID CONDITIONS AND ANY NEW CONDITIONS WILL BE IDENTIFIED AND REPORTED TO THE PHYSICIAN. Goal Provider Goal - PATIENT / CAREGIVER WILL VERBALIZE/DEMONSTRATE UNDERSTANDING OF MEASURES TO MANAGE ALTERED GASTROINTESTINAL STATUS BY END OF EPISODE. Goal Provider Goal - PATIENT / CAREGIVER WILL VERBALIZE/DEMONSTRATE APPROPRIATE METHODS TO IMPROVE NUTRITIONAL STATUS BY END OF EPISODE. Goal Provider Goal - PATIENT / CAREGIVER WILL VERBALIZE / DEMONSTRATE UNDERSTANDING OF PAIN CONTROL MEASURES BY EOE Goal Provider Goal - Goal Provider Goal - PATIENT/CAREGIVER WILL VERBALIZE UNDERSTANDING OF SIGNS AND SYMPTOMS THAT PUT THE PATIENT AT RISK FOR HOSPITALIZATION /EMERGENCY ROOM VISITS, WHEN TO NOTIFY NURSE/PHYSICIAN OF COMPLICATIONS/DECLINE AND WHEN TO CALL 911. Goal Provider Goal - PATIENT / CAREGIVER WILL VERBALIZE/DEMONSTRATE UNDERSTANDING OF MEASURES TO MANAGE ALTERED CARDIOVASCULAR STATUS BY EOE Goal Provider Goal - PATIENT/CAREGIVER TO VERBALIZE, AND CONSISTENTLY DEMONSTRATE EFFECTIVE, SAFE MANAGEMENT OF MEDICATION INCLUDING KNOWLEDGE OF EFFECTIVENESS, POTENTIAL SIDE EFFECTS AND DRUG REACTIONS AND WHEN TO CONTACT THE APPROPRIATE CARE PROVIDER. PATIENT/CAREGIVER WILL BE ABLE TO VERBALIZE UNDERSTANDING OF MEDICATION REGIMEN AND ACCURATELY TAKE MEDICATIONS PRESCRIBED WITHOUT ADVERSE EFFECTS BY EOE Encounters Start Date/Time End Date/Time Encounter Type Admission Type Attending [facility] Care Department Encounter ID Discharge Date Discharge Status Discharge Condition Discharge Reason Percent Goals Met 2025-03-01 00:00:00 2025-04-29 00:00:00 Outpatient NEW ADMISSION [facility] [id number]
== END 2025-03-03 15:53 | disposition home or self-care (01) ==
LOC: HO.XRAY 15:52
PROVIDERS: PCP Nurse Practitioner; Visit Provider Nurse Practitioner
DX: R15.9 Full incontinence of feces (principal)
CPT/HCPCS: 74019

== ENCOUNTER → 2025-03-03 16:25 | Outpatient (BNV) | payer MEDICARE, MEDICAID, SELFPAY | PROVIDERS: PCP Nurse Practitioner; Visit Provider Radiology Diagnostic Radiology | DX: K59.00 Constipation, unspecified (principal) | CPT/HCPCS: 74019 ==